=== PATIENT | male | born 1950 | race Caucasian/White ===

== ENCOUNTER 2019-01-05 08:07 | Observation (INO) | payer MEDICARE ==
[2019-01-04 13:27] LABS: BASOPHILS % 0.3 % (0.0-1.0); EOSINOPHILS # (AUTO) 0.1 (0.0-0.4); HEMATOCRIT 40.7 % (38.2-49.6); HEMOGLOBIN 13.6 g/dL (14.0-18.0); LYMPHOCYTES % 19.2 % (18.0-39.1); MEAN CORPUSCULAR HEMOGLOBIN 29.2 pg (28-32); MEAN CORPUSCULAR HGB CONC 33.4 g/dL (31-35); MEAN CORPUSCULAR VOLUME 87.5 fL (81-99); MONOCYTES # (AUTO) 0.8 (0.2-0.8); MONOCYTES % 8.2 % (4.4-11.3); NEUTROPHILS # (AUTO) 7.2 (2.1-6.9); NEUTROPHILS % 70.7 % (38.7-80.0); PLATELET COUNT 296 x10e3/uL (140-360); RED BLOOD COUNT 4.65 x10e6/uL (4.3-5.7); RED CELL DISTRIBUTION WIDTH 14.4 % (11.7-14.4)
[2019-01-04 13:43] LABS: ANION GAP 13.6 mmol/L (8-16); BLOOD UREA NITROGEN 15 mg/dL (7-26); BUN/CREATININE RATIO 18 (6-25); CALCIUM 9.9 mg/dL (8.4-10.2); CARBON DIOXIDE 24 mmol/L (22-29); CHLORIDE 108 mmol/L (98-107); CREATININE, SERUM 0.84 mg/dL (0.72-1.25); EST GLOMERULAR FILTRATION RATE > 60 ML/MIN (60-); GLUCOSE 60 mg/dL (74-118); POTASSIUM 3.6 mmol/L (3.5-5.1); SODIUM 142 mmol/L (136-145)
--- NOTE | 2019-01-04 13:50 | Diagnostic Imaging Report ---
Exam: PA and lateral chest radiograph Clinical history: Preoperative clearance Findings: The cardiac size is in the upper limits of normal. There is elevation of the right hemidiaphragm. There is no evidence of pulmonary consolidation, pleural effusion, or pneumothorax. The regional osseous structures are unremarkable. Impression: 1. Elevated right hemidiaphragm, otherwise, no radiographic evidence of acute cardiorespiratory disease. Signed by: Dr. Ryan Claros MD on 01/04/2019 1:46 PM
[~2019-01-05] VITALS: Ht 188 cm; Wt 128.9 kg
[~2019-01-05 08:07] MED LIST: ADALAT CC60 MG PO; AMIODARONE HCL200 MG PO; ANDROGEL TOP; ASPIRIN325 MG PO; ATORVASTATIN CA20 MG PO; BENAZAPRIL; BENAZEPRIL HCL10 MG PO; BYDUREON2 MG SQ; CARISOPRODOL350 MG PO; CELEBREX200 MG PO; ELIQUIS PO; FENTANYL1 EAC1 TOP; GLYBURIDE-METF1 EAC1 PO; HUMULIN; HYDROCODON-ACE1 EAC9 PO; HYDROCODONE-IB1 EAC1 PO; JANUVIA100 MG PO; LANTUS100 UNITS/ SC; LOSARTAN-HCTZ1 EACH PO; LOVENOX40 MG/0.4 SC; METOPROLOL SUCC25 MG PO; MORPHINE; MORPHINE SULFAT60 M1 PO; NIFEDIAC CC60 MG PO; PERCOCET 7.5-31 EACH PO; ROPIVACAINE 246.25 MG, EPINEPHRINE HCL 1:1000 1ML 0.5 MG, CLONIDINE HCL 0.08 MG, KETORO... INJ ONE; TAMSULOSIN HCL0.4 MG PO; TRICOR145 MG PO; VIAGRA 100 MG; ZANAFLEX4 M1 PO
--- OUTSIDE RECORDS SUMMARY | 2019-01-05 08:12 | XMS REPORT | Clinical Summary ---
Author Author [facility] Address Unknown Phone Unavailable Care Team Providers Care Traveling Nurse Name Role Phone Wander Correa DO PCP Allergies Comments Active Allergy Reactions Severity Noted Date No Known Drug Allergies Other (See 06/19/2015 Comments) Medications End Date Status Medication Sig Dispensed Refills Start Date Active atorvastatin (LIPITOR) 40 Take 40 mg by 0 06/16/201 MG tablet mouth every 6 morning. Active celecoxib (CeleBREX) 200 Take 200 mg 0 06/16/201 MG capsule by mouth 2 6 (two) times a day. Active fenofibrate 145 MG tablet Take 145 mg 0 06/16/201 by mouth 6 every evening. Active blood sugar diagnostic Check QAC and 400 strip 10 strips (ACCU-CHEK QHS 6 SMARTVIEW TEST STRIP) strip test stripsIndications: Diabetes type 2, uncontrolled (HCC) Active ONETOUCH VERIO strip test Test BID 200 strip 10 strips 6 Active JANUVIA 100 mg tablet Take 1 tablet 90 tablet 1 (100 mg 7 total) by mouth daily. Additional information Patient taking differently: 100 mg oral every morning, Reported on 04/06/2018 3:40 PM Active glyburide-metformin Take 2 360 tablet 1 (GLUCOVANCE) 5-500 mg per tablets by 7 tablet mouth 2 (two) times a day with meals. Active BYDUREON 2 mg/0.65 mL pen Inject 2 mg 12 each injector under the 7 skin once a week. Additional information Patient taking differently: 2 mg subcutaneous weekly, Pt usually takes on Fridays, Reported on 04/06/2018 3:49 PM Active blood sugar diagnostic 2 times daily 200 strip 10 strips (ONETOUCH VERIO) 7 strip test strips Active BD INSULIN PEN NEEDLE UF Use 2 times 200 each 10 MINI 31 gauge x 3/16" daily 7 needle Active losartan-hydrochlorothiaz Take 1 tablet 0 alex (HYZAAR) 50-12.5 mg by mouth per tablet every morning. Active omeprazole (PriLOSEC) 40 Take 40 mg by 0 MG capsule mouth 2 (two) times a day before meals. Pt takes 30 minutes before breakfast and dinner Active NIFEdipine XL (PROCARDIA Take 60 mg by 0 XL) 60 MG 24 hr tablet mouth every evening. Active methocarbamol (ROBAXIN) Take 750 mg 0 750 MG tablet by mouth 3 8 (three) times a day as needed. Active HYDROcodone-acetaminophen Take 1 tablet 0 (NORCO) 10-325 mg per by mouth tablet every 6 (six) hours as needed. Active NOVOLOG FLEXPEN U-100 Inject 10 0 INSULIN 100 unit/mL Units under 8 insulin pen the skin 3 (three) times a day with meals. Active insulin GLARGINE (LANTUS) Inject 50 0 100 unit/mL injection Units under (vial) the skin nightly. Active lidocaine (LIDODERM) 5 % Place 1 patch 2 on the skin 8 daily as needed. Active ELIQUIS 5 mg tablet Take 5 mg by 0 mouth 2 (two) 8 times a day. Active gabapentin (NEURONTIN) Take 300 mg 0 100 mg capsule by mouth 8 nightly. Active aspirin (ECOTRIN) 81 MG Take 81 mg by 0 enteric coated tablet mouth 2 (two) times a day. Active ascorbic acid, vitamin C, Take 500 mg 0 (VITAMIN C) 500 MG tablet by mouth every evening. Active multivitamin with Take 1 tablet 0 minerals tablet by mouth every evening. Active coenzyme Q10 200 mg Take 200 mg 0 capsule by mouth every evening. 04/06/2018 Discontinued (Med List Cleanup) benazepril-hydrochlorothi 0 azide (LOTENSIN HCT) 6 20-12.5 mg per tablet 04/06/2018 Discontinued (Med List Cleanup) fentaNYL (DURAGESIC) 0 6 04/06/2018 Discontinued (Med List Cleanup) HYDROcodone-acetaminophen 0 (NORCO 10-325) 10-325 mg 6 per tablet 04/06/2018 Discontinued (Med List Cleanup) NIFEdipine XL (PROCARDIA 0 XL) 60 MG 24 hr tablet 6 04/06/2018 Discontinued (Med List Cleanup) VIAGRA 100 mg tablet 0 6 04/06/2018 Discontinued (Med List Cleanup) baclofen (LIORESAL) 20 MG 0 tablet 7 04/06/2018 Discontinued (Med List Cleanup) lidocaine (XYLOCAINE) 5 % Apply 2-3 3 ointment grams to the 7 affected area(s) 3-4 times daily for pain ( 1gm=1dimesize ) 04/06/2018 Discontinued (Med List Cleanup) doxepin (ZONALON) 5 % Apply 2-3 3 cream pumps to 7 affected area(s) twice daily for nerve pain (1 pump=1 gram ) 04/06/2018 Discontinued (Med List Cleanup) diclofenac sodium 3 % gel Apply 2-3 3 grams to the 7 affected area(s) 3-4 times daily for pain ( 1gm=1dimesize ) 04/06/2018 Discontinued (Med List Cleanup) LANTUS SOLOSTAR 100 Inject 45 15 pen 1 unit/mL injection (pen) Units under 7 the skin nightly. Active Problems Problem Noted Date Chest pain 04/06/2018 Uncontrolled type 2 diabetes mellitus 06/19/2015 Hypertension Hypertension Hyperlipidemia Diabetes mellitus Atrial fibrillation Encounters Care Team Description Date Type Specialty Lu, MD Darío Coyne Jr., Jose Isaias, MD Chest pain, unspecified type (Primary Dx); Shortness of breath; Lightheaded 04/06/2018 Emergency General Internal Medicine - 04/07/2018 after 01/04/2018 Family History Medical History Relation Name Comments Diabetes Father Hypertension Father Hypertension Mother No Known Problems Sister Lupus Sister Relation Name Status Comments Father Mother Sister Sister Social History Date Tobacco Use Types Packs/Day Years Used Never Smoker Smokeless Tobacco: Former Quit: 04/06/1988 User Drinks/Week oz/Week Comments Alcohol Use occasional. 2-3x/wk Yes Financial Resource Strain Answer Date Recorded How hard is it for you to pay for the very basics Not hard at all 04/06/2018 like food, housing, medical care, and heating? Transportation Needs Answer Date Recorded In the past 12 months, has lack of transportation No 04/06/2018 kept you from medical appointments or from getting medications? In the past 12 months, has lack of transportation No 04/06/2018 kept you from meetings, work, or getting things needed for daily living? Sex Assigned at Date Recorded Not on file Industry Job Start Date Occupation Not on file Not on file Not on file Travel End Travel History Travel Start No recent travel history available. Last Filed Vital Signs Reading Time Taken Comments Vital Sign 160/57 04/07/2018 1:45 PM DIRECTORY OPERATOR Blood Pressure 59 04/07/2018 1:45 PM DIRECTORY OPERATOR Pulse 37.1 C (98.7 F) 04/07/2018 10:52 AM DIRECTORY OPERATOR Temperature 20 04/07/2018 10:52 AM DIRECTORY OPERATOR Respiratory Rate 96% 04/07/2018 10:52 AM DIRECTORY OPERATOR Oxygen Saturation - - Inhaled Oxygen Concentration 126 kg (278 lb) 04/06/2018 12:25 PM DIRECTORY OPERATOR Weight 188 cm (6' 2") 04/06/2018 12:25 PM DIRECTORY OPERATOR Height 35.69 04/06/2018 12:25 PM DIRECTORY OPERATOR Body Mass Index Plan of Treatment Health Maintenance Due Date Last Done Comments DIABETIC RETINAL EYE EXAM 1952 DIABETIC FOOT EXAM 1962 COLONOSCOPY SCREENING 2002 SHINGLES VACCINES (#1) 2002 65+ PNEUMOCOCCAL VACCINE 2017 (1 of 2 - PCV13) URINE MICROALBUMIN 10/04/2017 10/04/2016, 11/15/2015 INFLUENZA VACCINE 12/10/2018 02/09/2017 Procedures Comments Procedure Name Priority Date/Time Associated Diagnosis POC GLUCOSE Routine 04/07/2018 11:33 AM DIRECTORY OPERATOR POC GLUCOSE Routine 04/07/2018 5:52 AM DIRECTORY OPERATOR TROPONIN Timed 04/06/2018 9:00 PM DIRECTORY OPERATOR POC GLUCOSE Routine 04/06/2018 8:15 PM DIRECTORY OPERATOR TROPONIN Timed 04/06/2018 5:24 PM DIRECTORY OPERATOR POC GLUCOSE Routine 04/06/2018 5:23 PM DIRECTORY OPERATOR POC GLUCOSE Routine 04/06/2018 3:08 PM DIRECTORY OPERATOR URINALYSIS SCREEN AND STAT 04/06/2018 MICROSCOPY, WITH REFLEX 2:50 PM DIRECTORY OPERATOR TO CULTURE URINE CULTURE STAT 04/06/2018 2:50 PM DIRECTORY OPERATOR ECG 12-LEAD STAT 04/06/2018 1:48 PM DIRECTORY OPERATOR ECG ED PRELIMINARY Routine 04/06/2018 INTERPRETATION 1:03 PM DIRECTORY OPERATOR XR CHEST 2 VW STAT 04/06/2018 12:50 PM DIRECTORY OPERATOR HEMOGLOBIN A1C Routine 04/06/2018 12:32 PM DIRECTORY OPERATOR LIPID PANEL Routine 04/06/2018 12:32 PM DIRECTORY OPERATOR ESTIMATED GFR STAT 04/06/2018 12:30 PM DIRECTORY OPERATOR B NATRIURETIC PEPTIDE STAT 04/06/2018 12:30 PM DIRECTORY OPERATOR PARTIAL THROMBOPLASTIN STAT 04/06/2018 TIME (PTT) 12:30 PM DIRECTORY OPERATOR PROTHROMBIN TIME WITH INR STAT 04/06/2018 12:30 PM DIRECTORY OPERATOR TROPONIN STAT 04/06/2018 12:30 PM DIRECTORY OPERATOR CREATINE KINASE, TOTAL STAT 04/06/2018 (CPK) 12:30 PM DIRECTORY OPERATOR COMPREHENSIVE METABOLIC STAT 04/06/2018 PANEL 12:30 PM DIRECTORY OPERATOR HC COMPLETE BLD COUNT STAT 04/06/2018 W/AUTO DIFF 12:30 PM DIRECTORY OPERATOR ECG 12-LEAD STAT 04/06/2018 12:18 PM DIRECTORY OPERATOR ECG 12-LEAD STAT 04/06/2018 12:15 PM DIRECTORY OPERATOR after 01/04/2018 Results * POC glucose (04/07/2018 11:33 AM DIRECTORY OPERATOR) Only the most recent of 5 results within the time period is included. POC glucose 137 (H) 65 - 99 mg/dL [place] Comment: [facility] Meter ID: [id number] [facility] Kettle Worker: Vinayakrey Hernandez Specimen Performing Organization Address [facility] Phone Number [address] [place] [address] PATHOLOGY AND GENOMIC MEDICINE [address] * Troponin (04/06/2018 9:00 PM DIRECTORY OPERATOR) Only the most recent of 3 results within the time period is included. [facility] Troponin <0.300 0.000 - 0.300 ng/mL [place] Comment: [facility] 0.30 - 1.49 [facility] ng/mlMay indicate increased risk of acute coronary syndrome. >=1.5 ng/ml Consistent with acute myocardial infarction. The diagnostic value of a single normal or non-diagnostic result is questionable.Serial samples at 2-6 hour intervals are required to rule out acute myocardial injury. Specimen Plasma specimen Performing Organization Address [facility] Phone Number [address] [place] [address] PATHOLOGY AND GENOMIC MEDICINE [address] * Urinalysis screen and microscopy, with reflex to culture (04/06/2018 2:50 PM DIRECTORY OPERATOR) [facility] Specimen site Clean catch [facility] Color, UA Yellow [facility] Appearance, UA Clear [facility] Specific 1.026 1.001 - 1.035 [place] gravity, UA [facility] pH, UA 5.0 5.0 - 8.5 [facility] Protein, UA Negative Negative [facility] Glucose, UA Negative Negative [facility] Ketones, UA Negative Negative [facility] Bilirubin, UA Negative Negative [facility] Blood, UA Negative Negative [facility] Nitrite, UA Negative Negative [facility] Urobilinogen, Negative <2.0 [facility] Leukocyte Negative Negative [place] esterase, UA [facility] Epithelial Few /HPF [place] cells, UA [facility] Round Few 0 - 1 /HPF [place] epithelial [facility] cells, UA [facility] WBC, UA 0-5 0 - 1 /HPF [facility] RBC, UA 0-5 0 - 5 /HPF [facility] Bacteria, UA None seen None seen [facility] Yeast, UA None seen [facility] Yeast with None seen [place] pseudohyphae, [facility] Specimen Urine Performing Organization Address City[facility] Phone Number [address] [place] [address] PATHOLOGY AND GENOMIC MEDICINE [address] * Urine culture (04/06/2018 2:50 PM DIRECTORY OPERATOR) Pathologist [facility] Urine culture SEE COMMENTComment: [place] Bacteriuria screen negative. [facility] Specimen Urine Performing Organization Address [facility] [place] Phone Number [address] [place] [address] PATHOLOGY AND GENOMIC MEDICINE [address] * ECG 12 lead (04/06/2018 1:48 PM DIRECTORY OPERATOR) Only the most recent of 3 results within the time period is included. Ventricular 51 [facility] rate Atrial rate 51 [facility] MT interval 192 [facility] QRSD interval 106 [facility] QT interval 472 [facility] QTC interval 435 [facility] P axis 1 54 [facility] QRS axis 1 -49 [facility] T wave axis 46 [facility] EKG impression Sinus bradycardia-Left axis [facility] deviation-Septal infarct (cited on or before 02-JUL-2015)-Abnormal ECG-In automated comparison with ECG of 06-APR-2018 12:19,-Sinus rhythm has replaced Junctional rhythm- Specimen Narrative Performed At Performing Organization Address City[facility] Phone Number [facility] MUSE [address] [place] [address] * ECG ED Preliminary Interpretation - Not an Order (04/06/2018 1:03 PM DIRECTORY OPERATOR) Narrative Performed At Jovani Leigh Jr., MD 04/07/20188:40 AM ECG ED Preliminary Interpretation - Not an Order Performed by: Jovani Leigh Jr., MD Authorized by: Jovani Leigh Jr., MD ECG reviewed by ED Physician in the absence of a green tire inspector: yes (read at [id number]) Previous ECG: Previous ECG:Unavailable Interpretation: Interpretation: normal Rate: ECG rate:51 ECG rate assessment: bradycardic Rhythm: Rhythm: sinus bradycardia Ectopy: Ectopy: none QRS: QRS axis:Normal (106) Conduction: Conduction: normal ST segments: ST segments:Normal T waves: T waves: normal Q waves: Q waves:V1 and V2 * XR Chest 2 Vw (04/06/2018 12:50 PM DIRECTORY OPERATOR) Specimen Narrative Performed At EXAMINATION:XR CHEST 2 VW RADIANT CLINICAL HISTORY:chest pain XR CHEST 2 VWimages are submitted COMPARISON:NONE FINDINGS: The cardiac silhouette is normal in size. The pulmonary vasculature is within normal limits. The lung zones are clear. There is no pleural effusion or pneumothorax.There is elevation of the right lung. Degenerative changes are present within the thoracic and upper lumbar spine. IMPRESSION: 1. There is no acute cardiopulmonary disease. [id number] Procedure Note Interface, Radiology Results Incoming - 04/06/2018 1:05 PM DIRECTORY OPERATOR EXAMINATION: XR CHEST 2 VW CLINICAL HISTORY: chest pain XR CHEST 2 VW images are submitted COMPARISON: NONE FINDINGS: The cardiac silhouette is normal in size. The pulmonary vasculature is within normal limits. The lung zones are clear. There is no pleural effusion or pneumothorax. There is elevation of the right lung. Degenerative changes are present within the thoracic and upper lumbar spine. IMPRESSION: 1. There is no acute cardiopulmonary disease. [id number] Performing Organization Address City/State/Zipcode Phone Number [facility] [address] [place] [address] * Hemoglobin A1c (04/06/2018 12:32 PM DIRECTORY OPERATOR) Hemoglobin A1C 7.3 (H) 4.0 - 6.0 % [place] Comment: RESTORATIONIST [facility] Less than 6% - Goal of therapy for Type II Diabetes Less than 7%-Goal of therapy for Type I Diabetes Less than 8%-Accepta ble control for Type I or Type II Diabetes Greater than 8%-Unacceptabl e control; action indicated. ([id number]) Specimen Blood Performing Organization Address City[facility] Phone Number [facility] [place] [address] [place] [address] PATHOLOGY AND GENOMIC MEDICINE [address] [place] [address] [facility] * Lipid panel (04/06/2018 12:32 PM DIRECTORY OPERATOR) Cholesterol 152 <200 mg/dL [facility] Triglycerides 200 (H) <150 mg/dL [facility] HDL cholesterol 43 >40 mg/dL [facility] LDL cholesterol 96Comment: Result obtained by <100 mg/dL [place] direct LDL measurement [facility] interpretation Comment: [facility] Total Cholesterol [facility] (mg/dL) <200 Desirable 200-239Borderline -high >=240High Triglycerides (mg/dL) <150 Normal 150-199Borderline -high 200-499High >=500Very high HDL Cholesterol (mg/dL) <40Low (male) <40Low (female) LDL Cholesterol (mg/dL) <100 Optimal 100-129Near or above optimal 130-159Borderline -high 160-189High >=190Very high Risk Catergories that modify LDL goals. Risk Catergories LDL goal (mg/dL) CHD and CHD risk equivalent<100 (10-year risk >20%) Multiple (2+) risk factors <130 (10-year risk=<20%) 0-1 risk factors <160 (<10-year risk) Defining levels of lipids in metabolic syndrome Triglycerides >=150 mg/dL HDL Cholesterol Men <40 mg/dL Women <40 mg/dL Non-HDL cholesterol is a second target for therapy in persons with high triglycerides (>=200 mg/dL) Specimen Plasma specimen Performing Organization Address [facility]/Zipcode Phone Number [address] [place] [address] PATHOLOGY AND GENOMIC MEDICINE [address] [place] [address] [facility] * Estimated GFR (04/06/2018 12:30 PM DIRECTORY OPERATOR) [facility] Estimated GFR >=90 mL/min/1.73 m2 [place] Comment: [facility] rpretation G1 >=90 Normal or high G2 60-89Mildly decreased [id number] Mildly to moderately decreased [id number] Moderately to severely decreased G4 15-29Severely decreased G5 <15Kidney failure The eGFR was calculated using the Chronic Kidney Disease Epidemiology Collaboration (CKD-EPI) equation. Interpretation is based on recommendations of the National Kidney Foundation-Kidney Disease Outcomes Quality Initiative (NKF-KDOQI) published in 2014. Specimen Plasma specimen Performing Organization Address [facility] Phone Number [address] * Partial thromboplastin time, activated (04/06/2018 12:30 PM DIRECTORY OPERATOR) [facility] PTT 28.9 23.0 - 36.0 sec [place] Comment: DORIS LEACH PTT therapeutic range for [facility] unfractionated heparin is 61.0-112.0 seconds which corresponds to Anti-Xa 0.3-0.7 U/ml. Specimen Blood Performing Organization Address [facility] [place] Phone Number [address] * Prothrombin time with INR (04/06/2018 12:30 PM DIRECTORY OPERATOR) [facility] Prothrombin 13.8 11.5 - 14.5 sec [facility] INR 1.1 [place] Comment: DORIS MEDINA The International Normalized [facility] Ratio (INR) is a therapeutic monitoring tool for patients who are stable on oral anticoagulant therapy. An INR of 2.0-3.0 is suggested for deep vein thrombosis/pulmonary embolism. Specimen Blood Performing Organization Address [facility] Phone Number [address] [place] [address] PATHOLOGY AND [address] * CBC with platelet and differential (04/06/2018 12:30 PM DIRECTORY OPERATOR) [facility] WBC 8.51 4.50 - 11.00 k/uL [facility] RBC 4.47 4.40 - 6.00 m/uL [facility] HGB 13.0 (L) 14.0 - 18.0 g/dL [facility] HCT 40.4 (L) 41.0 - 51.0 % [facility] MCV 90.4 82.0 - 100.0 fL [facility] MCH 29.1 27.0 - 34.0 pg [facility] MCHC 32.2 31.0 - 37.0 g/dL [facility] RDW - SD 44.6 37.0 - 55.0 fL [facility] MPV 9.7 8.8 - 13.2 fL [facility] Platelet count 248 150 - 400 k/uL [facility] Nucleated RBC 0.00 /100 WBC [facility] Neutrophils 74.7 (H) 39.0 - 69.0 % [facility] Lymphocytes 14.3 (L) 25.0 - 45.0 % [facility] Monocytes 9.0 0.0 - 10.0 % [facility] Eosinophils 1.2 0.0 - 5.0 % [facility] Basophils 0.4 0.0 - 1.0 % [facility] Specimen Blood Performing Organization Address [facility] Phone Number [address] [place] [address] PATHOLOGY AND GENOMIC MEDICINE [address] * B natriuretic peptide (04/06/2018 12:30 PM DIRECTORY OPERATOR) [facility] BNP 44 0 - 100 pg/mL [facility] Specimen Blood Performing Organization Address [facility] Phone Number [address] [place] [address] PATHOLOGY AND GENOMIC MEDICINE [address] * Creatine kinase, total (CPK) (04/06/2018 12:30 PM DIRECTORY OPERATOR) Pathologist [facility] Creatine kinase 237 39 - 308 U/L [facility] Specimen Plasma specimen Performing Organization Address City/State/Zipcode Phone Number [facility] [address] [place] [address] PATHOLOGY AND GENOMIC MEDICINE [facility] [address] * Comprehensive metabolic panel (04/06/2018 12:30 PM DIRECTORY OPERATOR) Pathologist [facility] Sodium 141 135 - 148 mEq/L [facility] Potassium 4.3 3.5 - 5.0 mEq/L [facility] Chloride 103 98 - 112 mEq/L [facility] CO2 27 24 - 31 mEq/L [facility] Anion gap 11@ANIO 7 - 15 mEq/L [facility] BUN 16 8 - 23 mg/dL [facility] Creatinine 0.80 0.70 - 1.20 mg/dL [facility] Glucose 181 (H) 65 - 99 mg/dL [facility] Calcium 9.7 8.8 - 10.2 mg/dL [facility] Protein 7.1 6.3 - 8.3 g/dL [place] Comment: [facility] 4.6-7.0 g/dL 1 week 4.4-7.6 g/dL 7 months-1year 5.1-7.3 g/dL 1-2 years5.6-7 .5 g/dL >3 years6.0-8 .0 g/dL 18-150 6.3-8.3 g/dL Albumin 4.5 3.5 - 5.0 g/dL [facility] A/G ratio 1.7 0.7 - 3.8 [facility] Alkaline 102 40 - 129 U/L [place] phosphatase [facility] AST 20 10 - 50 U/L [facility] ALT 24 5 - 50 U/L [facility] Total bilirubin 0.3 0.0 - 1.2 mg/dL [facility] Specimen Plasma specimen Performing Organization Address City/State/Zipcode [place] [address] [place] [address] PATHOLOGY AND GENOMIC MEDICINE [facility] [address] [place] [address] [facility] after 01/04/2018 Insurance Type Payer Benefit Subscriber ID Effective Phone Address Plan / Dates Group HMO AETNA MEDICARE AETNA xxxxxxxx 2017- MEDICARE Present HMO/PPO [facility] (Home) [place] [address] Advance Directives For more information, please contact: [phone] Patient Grey Roll Worker Explanation Type Date Recorded Advance Directives, 04/06/2018 2:08 PM Living Will and Medical Power of Tip Printer
--- OUTSIDE RECORDS SUMMARY | 2019-01-05 08:13 | XMS REPORT ---
[facility] Address Unknown Phone Unavailable Care Team Providers Care Deck Mechanic Name Role Phone SHELBI HORN Unavailable Unavailable LETTY LEDESMA Unavailable Unavailable LUKASZ CORREA Unavailable Unavailable BINDU COSTA Unavailable Unavailable Payers Payer Name Policy Type Policy Number Effective Date Expiration Date Problems This patient has no known problems. Allergies, Adverse Reactions, Alerts Allergy Name Allergy Type Status Severity Reaction(s) Onset Date Inactive Date Treating Clinician Comments No Known Allergies DA Active U 2018-04-21 00:00:00 Cat/Feline Product Derivatives DA Active AR 2011-10-23 00:00:00 POLLEN DA Active AR 2011-10-22 00:00:00 Medications This patient has no known medications. Results Test Description Test Time Test Comments Text Results Atomic Results Result Comments CHEST 2 VIEWS 2019-01-04 13:45:00 [place] [address] Patient Name: ZEKE BEE MR #: [id number] : 1950 Age/Sex: 68/M Req #: [id number] Adm Physician: Ordered by: SHELBI HORN MD Report #: [id number] Location: OR Room/Bed: Procedure: [id number] DX/CHEST 2 VIEWS Exam Date: 01/04/19 Exam Time: 1310 REPORT STATUS: Signed Exam: PA and lateral chest radiograph Clinical history: P reoperative clearance Findings: The cardiac size is in the upper limits of normal. There is elevation of the right hemidiaphragm. There is no evidence of pulmonary consolidation, pleural effusion, or pneumothorax. The regional osseous structures are unremarkable. Impression: 1. Elevated right hemidiaphragm, otherwise, no radiographic evidence of acute cardiorespiratory disease. Signed by: Dr. Ryan Claros MD on 01/04/2019 1:46 PM Dictated By: LAVELLE CLAROS MD 1346 Transcribed By: SHAWNA on 01/04/19 1346 COPY TO: SHELBI HORN MD GLUBED 2018-09-07 14:44:00 GLUBED (test code=GLUBED) 127 mg/dL 74-106 Performed by certified blending plant operator at [facility] PROTHROMBIN [id number] 07:25:00* Test Item Value Reference Range Comments PROTHROMBIN TIME PATIENT (test code=PTP) 14.3 seconds 9.0-14.0 INTERNATIONAL NORMAL RATIO (test code=INR) 1.2 0.8-1.2 The therapeutic range for oral anticoagulant therapy formost indications is an international normalized ratio (INR)of between 2.0 and 3.0. The recommended therapeutic INRrange for various clinical situations is listed below: Clinical Situation INR range Pulmonary e mbolism treatment (2.0-3.0)Venous thrombosis treatmentVenous thrombosis prophylaxis (high risk surgery)Prevention of systemic embolism from: Acute myocardial infarction Valvular heart disease Atrial fibrillation Mechanical prosthetic heart valves (2.5-3.5) IS PATIENT ON ANTICOAGULANTS? YLIST ANTICOAGULANTS ELIQUISTHROMBOPLASTIN TIME [id number] 07:25:00* Test Item Value Reference Range Comments THROMBOPLASTIN TIME PARTIAL (test code=PTT) 33.0 seconds 25.0-36.5 IS PATIENT ON ANTICOAGULANTS? YLIST ANTICOAGULANTS ELIQUISPOCT-GLUCOSE METER 2018-01-06 07:54:00* Test Item Value Reference Range Comments POC-GLUCOSE METER (BEAKER) (test plwu=0571) 226 mg/dL 70-110 TESTED AT [facility] [address] [facility] [address] [id number] 02:07:00* Test Item Value Reference Range Comments BLOOD UREA NITROGEN (BEAKER) (test rxmw=913) 14 mg/dL 7-21 [id number] 02:07:00* Test Item Value Reference Range Comments SODIUM (BEAKER) (test bcib=150) 141 meq/L 136-145 POTASSIUM (BEAKER) (test hzjl=872) 3.8 meq/L 3.5-5.1 CHLORIDE (BEAKER) (test xkmp=791) 109 meq/L 98-107 CO2 (BEAKER) (test xakc=688) 24 meq/L 22-29 [id number] 02:07:00* Test Item Value Reference Range Comments CREATININE (BEAKER) (test xirs=334) 0.83 mg/dL 0.57-1.25 EGFR (BEAKER) (test bomr=1911) 93 mL/min/1.73 sq m ESTIMATED GFR IS NOT ACCURATE CREATININE CLEARANCE IN PREDICTING GLOMERULAR FILTRATION RATE. ESTIMATED GFR IS NOT APPLICABLE FOR DIALYSIS PATIENTS. [id number] 02:06:00* Test Item Value Reference Range Comments PARTIAL THROMBOPLASTIN TIME (BEAKER) (test rnjt=398) 26.4 seconds 22.5-36.0 6 hours after starting heparin infusion and as indicated per sliding scaleCBC (HEMOGRAM ONLY)2018-01-06 01:52:00* Test Item Value Reference Range Comments WHITE BLOOD CELL COUNT (BEAKER) (test cqlx=636) 12.1 K/ L 3.5-10.5 RED BLOOD CELL COUNT (BEAKER) (test ejhy=763) 3.95 M/ L 4.63-6.08 HEMOGLOBIN (BEAKER) (test tcuo=932) 12.0 GM/DL 13.7-17.5 HEMATOCRIT (BEAKER) (test pzjl=117) 36.8 % 40.1-51.0 MEAN CORPUSCULAR VOLUME (BEAKER) (test glta=752) 93.2 fL 79.0-92.2 MEAN CORPUSCULAR HEMOGLOBIN (BEAKER) (test jful=418) 30.4 pg 25.7-32.2 MEAN CORPUSCULAR HEMOGLOBIN CONC (BEAKER) (test trnn=007) 32.6 GM/DL 32.3-36.5 RED CELL DISTRIBUTION WIDTH (BEAKER) (test bddn=532) 13.0 % 11.6-14.4 PLATELET COUNT (BEAKER) (test twtm=559) 257 K/CU MM 150-450 MEAN PLATELET VOLUME (BEAKER) (test emnm=405) 10.0 fL 9.4-12.4 NUCLEATED RED BLOOD CELLS (BEAKER) (test bvgb=684) 0 /100 WBC 0-0 BASIC METABOLIC [id number] 19:48:00* Test Item Value Reference Range Comments SODIUM (BEAKER) (test rbvo=612) 142 meq/L 136-145 POTASSIUM (BEAKER) (test tkrs=264) 3.8 meq/L 3.5-5.1 CHLORIDE (BEAKER) (test arbg=997) 108 meq/L 98-107 CO2 (BEAKER) (test pure=276) 28 meq/L 22-29 BLOOD UREA NITROGEN (BEAKER) (test eyml=108) 11 mg/dL 7-21 CREATININE (BEAKER) (test tubb=868) 0.80 mg/dL 0.57-1.25 GLUCOSE RANDOM (BEAKER) (test nezi=133) 122 mg/dL 70-105 CALCIUM (BEAKER) (test mswt=648) 8.6 mg/dL 8.4-10.2 EGFR (BEAKER) (test uyem=1119) 97 mL/min/1.73 sq m ESTIMATED GFR IS NOT ACCURATE CREATININE CLEARANCE IN PREDICTING GLOMERULAR FILTRATION RATE. ESTIMATED GFR IS NOT APPLICABLE FOR DIALYSIS PATIENTS. [id number] 19:42:00* Test Item Value Reference Range Comments PARTIAL THROMBOPLASTIN TIME (BEAKER) (test strc=727) 73.2 seconds 22.5-36.0 Prior to initiating heparinCBC (HEMOGRAM ONLY)2018-01-05 19:29:00* Test Item Value Reference Range Comments WHITE BLOOD CELL COUNT (BEAKER) (test eqsf=571) 10.4 K/ L 3.5-10.5 RED BLOOD CELL COUNT (BEAKER) (test mesy=281) 4.13 M/ L 4.63-6.08 HEMOGLOBIN (BEAKER) (test yfgl=901) 12.4 GM/DL 13.7-17.5 HEMATOCRIT (BEAKER) (test ohab=519) 38.4 % 40.1-51.0 MEAN CORPUSCULAR VOLUME (BEAKER) (test evin=581) 93.0 fL 79.0-92.2 MEAN CORPUSCULAR HEMOGLOBIN (BEAKER) (test nzvx=802) 30.0 pg 25.7-32.2 MEAN CORPUSCULAR HEMOGLOBIN CONC (BEAKER) (test duwg=171) 32.3 GM/DL 32.3-36.5 RED CELL DISTRIBUTION WIDTH (BEAKER) (test vfkc=040) 12.8 % 11.6-14.4 PLATELET COUNT (BEAKER) (test cxxk=350) 260 K/CU MM 150-450 MEAN PLATELET VOLUME (BEAKER) (test wtem=233) 9.8 fL 9.4-12.4 NUCLEATED RED BLOOD CELLS (BEAKER) (test bjes=941) 0 /100 WBC 0-0 [id number] 19:02:00* Test Item Value Reference Range Comments ACTIVATED CLOTTING TIME (BEAKER) (test xxkb=273) 142 sec TESTED AT [place] [id number] 18:04:00* Test Item Value Reference Range Comments ACTIVATED CLOTTING TIME (BEAKER) (test imoy=213) 224 sec TESTED AT [place] [id number] [id number] 18:04:00* Test Item Value Reference Range Comments ACTIVATED CLOTTING TIME (BEAKER) (test acpf=248) 235 sec TESTED AT [place] [address] [id number] 18:04:00* Test Item Value Reference Range Comments ACTIVATED CLOTTING TIME (BEAKER) (test jeva=481) 230 sec TESTED AT [facility] [address] [facility] [address] [id number] 18:04:00* Test Item Value Reference Range Comments ACTIVATED CLOTTING TIME (BEAKER) (test qxbo=767) 197 sec TESTED AT [facility] [address] [facility] [address] BASIC METABOLIC [id number] 11:39:00* Test Item Value Reference Range Comments SODIUM (BEAKER) (test ybwp=072) 140 meq/L 136-145 POTASSIUM (BEAKER) (test txse=300) 3.6 meq/L 3.5-5.1 CHLORIDE (BEAKER) (test qpft=031) 106 meq/L 98-107 CO2 (BEAKER) (test vdzq=817) 26 meq/L 22-29 BLOOD UREA NITROGEN (BEAKER) (test ocqb=444) 14 mg/dL 7-21 CREATININE (BEAKER) (test hbba=244) 0.79 mg/dL 0.57-1.25 GLUCOSE RANDOM (BEAKER) (test srqo=791) 133 mg/dL 70-105 CALCIUM (BEAKER) (test sbzq=661) 9.4 mg/dL 8.4-10.2 EGFR (BEAKER) (test upml=7405) 98 mL/min/1.73 sq m ESTIMATED GFR IS NOT ACCURATE CREATININE CLEARANCE IN PREDICTING GLOMERULAR FILTRATION RATE. ESTIMATED GFR IS NOT APPLICABLE FOR DIALYSIS PATIENTS. CBC W/PLT COUNT & AUTO [id number] 11:27:00* Test Item Value Reference Range Comments WHITE BLOOD CELL COUNT (BEAKER) (test ofzw=820) 10.8 K/ L 3.5-10.5 RED BLOOD CELL COUNT (BEAKER) (test lhgp=271) 4.58 M/ L 4.63-6.08 HEMOGLOBIN (BEAKER) (test txmf=766) 13.7 GM/DL 13.7-17.5 HEMATOCRIT (BEAKER) (test xfkv=982) 41.6 % 40.1-51.0 MEAN CORPUSCULAR VOLUME (BEAKER) (test habe=346) 90.8 fL 79.0-92.2 MEAN CORPUSCULAR HEMOGLOBIN (BEAKER) (test ahyn=969) 29.9 pg 25.7-32.2 MEAN CORPUSCULAR HEMOGLOBIN CONC (BEAKER) (test juii=711) 32.9 GM/DL 32.3-36.5 RED CELL DISTRIBUTION WIDTH (BEAKER) (test fihn=784) 12.9 % 11.6-14.4 PLATELET COUNT (BEAKER) (test sklc=812) 285 K/CU MM 150-450 MEAN PLATELET VOLUME (BEAKER) (test fwcl=777) 9.5 fL 9.4-12.4 NUCLEATED RED BLOOD CELLS (BEAKER) (test hnjl=476) 0 /100 WBC 0-0 NEUTROPHILS RELATIVE PERCENT (BEAKER) (test lcyo=537) 77 % LYMPHOCYTES RELATIVE PERCENT (BEAKER) (test cifh=459) 14 % MONOCYTES RELATIVE PERCENT (BEAKER) (test vjth=906) 8 % EOSINOPHILS RELATIVE PERCENT (BEAKER) (test kthl=319) 1 % BASOPHILS RELATIVE PERCENT (BEAKER) (test gwzu=098) 0 % NEUTROPHILS ABSOLUTE COUNT (BEAKER) (test mwdq=880) 8.32 K/ L 1.78-5.38 LYMPHOCYTES ABSOLUTE COUNT (BEAKER) (test ipuh=297) 1.48 K/ L 1.32-3.57 MONOCYTES ABSOLUTE COUNT (BEAKER) (test tkir=885) 0.86 K/ L 0.30-0.82 EOSINOPHILS ABSOLUTE COUNT (BEAKER) (test rmno=539) 0.05 K/ L 0.04-0.54 BASOPHILS ABSOLUTE COUNT (BEAKER) (test wwco=725) 0.03 K/ L 0.01-0.08 IMMATURE GRANULOCYTES-RELATIVE PERCENT (BEAKER) (test lygk=1550) 1 % 0-1 POCT-GLUCOSE [id number] 12:14:00* Test Item Value Reference Range Comments POC-GLUCOSE METER (BEAKER) (test mous=7142) 168 mg/dL 70-110 TESTED AT [place] [id number] [facility] [address] [id number] 11:11:00* Test Item Value Reference Range Comments MAGNESIUM (BEAKER) (test glfu=406) 1.9 mg/dL 1.6-2.6 RAD, CHEST, 1 VIEW, NON [id number] 09:12:00Reason for exam:->shortness of breathShould this be performed at the bedside?->YesFINAL REPORT Chest 2 views AP 09/15/2017 9:12 AM CLINICAL HISTORY: shortness of breath COMPARISON: 09/14/2017 FINDINGS: The lungs are well aerated. Cardiomediastinal contours are within normal limits. The central pulmonary vasculature is not engorged. IMPRESSION: Unremarkable frontal chest radiograph. Signed: Sreedhar Magaña Verified Date/Time: 09/15/2017 09:12:43 Reading Location: [facility] Radiology Reading Room -GLUCOSE [id number] 08:31:00* Test Item Value Reference Range Comments POC-GLUCOSE METER (BEAKER) (test bhpd=5784) 72 mg/dL 70-110 TESTED AT [facility] [address] [facility] [address] BASIC METABOLIC [id number] 06:04:00* Test Item Value Reference Range Comments SODIUM (BEAKER) (test kpei=661) 143 meq/L 136-145 POTASSIUM (BEAKER) (test gzyw=321) 3.7 meq/L 3.5-5.1 CHLORIDE (BEAKER) (test mtpp=394) 109 meq/L 98-107 CO2 (BEAKER) (test lkuu=407) 27 meq/L 22-29 BLOOD UREA NITROGEN (BEAKER) (test swwd=991) 13 mg/dL 7-21 CREATININE (BEAKER) (test ktgw=304) 0.74 mg/dL 0.57-1.25 GLUCOSE RANDOM (BEAKER) (test fmdb=336) 100 mg/dL 70-105 CALCIUM (BEAKER) (test lijh=281) 9.1 mg/dL 8.4-10.2 EGFR (BEAKER) (test bfhg=8157) 106 mL/min/1.73 sq m ESTIMATED GFR IS NOT ACCURATE CREATININE CLEARANCE IN PREDICTING GLOMERULAR FILTRATION RATE. ESTIMATED GFR IS NOT APPLICABLE FOR DIALYSIS PATIENTS. CBC W/PLT COUNT & AUTO [id number] 05:48:00* Test Item Value Reference Range Comments WHITE BLOOD CELL COUNT (BEAKER) (test jmsj=227) 7.4 K/ L 3.5-10.5 RED BLOOD CELL COUNT (BEAKER) (test edce=038) 4.65 M/ L 4.63-6.08 HEMOGLOBIN (BEAKER) (test hvkh=661) 13.7 GM/DL 13.7-17.5 HEMATOCRIT (BEAKER) (test lmqh=485) 42.6 % 40.1-51.0 MEAN CORPUSCULAR VOLUME (BEAKER) (test hbyj=001) 91.6 fL 79.0-92.2 MEAN CORPUSCULAR HEMOGLOBIN (BEAKER) (test ahey=736) 29.5 pg 25.7-32.2 MEAN CORPUSCULAR HEMOGLOBIN CONC (BEAKER) (test zmoc=181) 32.2 GM/DL 32.3-36.5 RED CELL DISTRIBUTION WIDTH (BEAKER) (test vgsu=246) 12.9 % 11.6-14.4 PLATELET COUNT (BEAKER) (test uefz=120) 237 K/CU MM 150-450 MEAN PLATELET VOLUME (BEAKER) (test sonk=013) 10.0 fL 9.4-12.4 NUCLEATED RED BLOOD CELLS (BEAKER) (test inmq=743) 0 /100 WBC 0-0 NEUTROPHILS RELATIVE PERCENT (BEAKER) (test djqg=273) 63 % LYMPHOCYTES RELATIVE PERCENT (BEAKER) (test lnbq=117) 26 % MONOCYTES RELATIVE PERCENT (BEAKER) (test itvn=036) 10 % EOSINOPHILS RELATIVE PERCENT (BEAKER) (test nfmu=255) 1 % BASOPHILS RELATIVE PERCENT (BEAKER) (test ycfk=011) 0 % NEUTROPHILS ABSOLUTE COUNT (BEAKER) (test eckp=139) 4.61 K/ L 1.78-5.38 LYMPHOCYTES ABSOLUTE COUNT (BEAKER) (test pkpf=737) 1.90 K/ L 1.32-3.57 MONOCYTES ABSOLUTE COUNT (BEAKER) (test xjte=227) 0.71 K/ L 0.30-0.82 EOSINOPHILS ABSOLUTE COUNT (BEAKER) (test lmaa=604) 0.10 K/ L 0.04-0.54 BASOPHILS ABSOLUTE COUNT (BEAKER) (test hooh=701) 0.02 K/ L 0.01-0.08 IMMATURE GRANULOCYTES-RELATIVE PERCENT (BEAKER) (test zhey=7445) 0 % 0-1 B-TYPE NATRIURETIC FACTOR (BNP)2017-09-14 22:34:00* Test Item Value Reference Range Comments B-TYPE NATRIURETIC PEPTIDE (BEAKER) (test ispw=560) 124 pg/mL 0-100 TROPONIN [id number] 22:33:00* Test Item Value Reference Range Comments TROPONIN I (BEAKER) (test hzdr=198) 0.01 ng/mL 0.00-0.03 Troponin I (TnI) levels must be interpreted in the context of the presenting sym ptoms and the clinical findings. Elevated TnI levels indicate myocardial damage, but are not specific for ischemic heart disease. Elevated TnI levels are seen in patients with other cardiac conditions (including myocarditis and congestive h eart failure), and slight TnI elevations occur in patients with other conditions , including sepsis, renal failure, acidosis, acute neurological disease, and per sistent tachyarrhythmia.RAD, CHEST, 1 VIEW, NON [id number] 22:31:00Reason for exam:->Chest PainFINAL REPORT EXAMINATION: AP PORTABLE CHEST RADIOGRAPH CLINICAL INDICATION: Chest pain IMPRESSION: No comparison studies are available. The right hemidiaphragm is elevated. Subtle consolidation at the right lung base is favored to reflect associated atelectasis or scarring. No definite evidence of a discrete pneumonia, pulmonary edema, large pleural effusion or pneumothorax. The cardiomediastinal silhouette is magnified by the AP portable technique. However mild cardiac enlargement should also be considered. Orthopedic anchors are noted in the left humeral head. No definite evidence of an acute osseous abnormality. Signed: Salbador Le [facility]ep[facility] Verified Date/Time: 09/14/2017 22:31:50 Reading Location: [address] Reading Room [id number] 22:25:00* Test Item Value Reference Range Comments MAGNESIUM (BEAKER) (test bowg=226) 1.7 mg/dL 1.6-2.6 BASIC METABOLIC [id number] 22:25:00* Test Item Value Reference Range Comments SODIUM (BEAKER) (test vjwr=406) 143 meq/L 136-145 POTASSIUM (BEAKER) (test fgyz=671) 3.7 meq/L 3.5-5.1 CHLORIDE (BEAKER) (test kpcx=660) 108 meq/L 98-107 CO2 (BEAKER) (test palz=506) 25 meq/L 22-29 BLOOD UREA NITROGEN (BEAKER) (test abdq=627) 16 mg/dL 7-21 CREATININE (BEAKER) (test xwmz=178) 0.84 mg/dL 0.57-1.25 GLUCOSE RANDOM (BEAKER) (test buum=685) 156 mg/dL 70-105 CALCIUM (BEAKER) (test wyyd=114) 9.1 mg/dL 8.4-10.2 EGFR (BEAKER) (test ojag=1942) 92 mL/min/1.73 sq m ESTIMATED GFR IS NOT ACCURATE CREATININE CLEARANCE IN PREDICTING GLOMERULAR FILTRATION RATE. ESTIMATED GFR IS NOT APPLICABLE FOR DIALYSIS PATIENTS. PROTHROMBIN [id number] 22:19:00* Test Item Value Reference Range Comments PROTIME (BEAKER) (test yxgj=141) 16.8 seconds 11.7-14.7 INR (BEAKER) (test yitu=282) 1.4 <=5.9 RECOMMENDED COUMADIN/WARFARIN INR THERAPY RANGESSTANDARD DOSE: 2.0 - 3.0 Inclu dk: PROPHYLAXIS for venous thrombosis, systemic embolization; TREATMENT for francisco ous thrombosis and/or pulmonary embolus.HIGH RISK: Target INR is 2.5-3.5 for pat ients with mechanical heart valves.CBC W/PLT COUNT & AUTO [id number] 22:10:00* Test Item Value Reference Range Comments WHITE BLOOD CELL COUNT (BEAKER) (test ivrf=683) 8.1 K/ L 3.5-10.5 RED BLOOD CELL COUNT (BEAKER) (test alel=917) 4.52 M/ L 4.63-6.08 HEMOGLOBIN (BEAKER) (test tiyu=244) 13.7 GM/DL 13.7-17.5 HEMATOCRIT (BEAKER) (test mtrp=704) 40.7 % 40.1-51.0 MEAN CORPUSCULAR VOLUME (BEAKER) (test ftdu=386) 90.0 fL 79.0-92.2 MEAN CORPUSCULAR HEMOGLOBIN (BEAKER) (test cwrz=847) 30.3 pg 25.7-32.2 MEAN CORPUSCULAR HEMOGLOBIN CONC (BEAKER) (test paqx=248) 33.7 GM/DL 32.3-36.5 RED CELL DISTRIBUTION WIDTH (BEAKER) (test dkku=113) 12.7 % 11.6-14.4 PLATELET COUNT (BEAKER) (test agdh=493) 237 K/CU MM 150-450 MEAN PLATELET VOLUME (BEAKER) (test exfz=890) 9.8 fL 9.4-12.4 NUCLEATED RED BLOOD CELLS (BEAKER) (test jnjo=453) 0 /100 WBC 0-0 NEUTROPHILS RELATIVE PERCENT (BEAKER) (test ackv=315) 66 % LYMPHOCYTES RELATIVE PERCENT (BEAKER) (test sjim=241) 22 % MONOCYTES RELATIVE PERCENT (BEAKER) (test elrv=670) 9 % EOSINOPHILS RELATIVE PERCENT (BEAKER) (test caiz=865) 1 % BASOPHILS RELATIVE PERCENT (BEAKER) (test wdyd=247) 0 % NEUTROPHILS ABSOLUTE COUNT (BEAKER) (test qbmw=594) 5.41 K/ L 1.78-5.38 LYMPHOCYTES ABSOLUTE COUNT (BEAKER) (test loaa=299) 1.79 K/ L 1.32-3.57 MONOCYTES ABSOLUTE COUNT (BEAKER) (test ltwx=928) 0.74 K/ L 0.30-0.82 EOSINOPHILS ABSOLUTE COUNT (BEAKER) (test zlxx=344) 0.11 K/ L 0.04-0.54 BASOPHILS ABSOLUTE COUNT (BEAKER) (test mfxy=563) 0.03 K/ L 0.01-0.08 IMMATURE GRANULOCYTES-RELATIVE PERCENT (BEAKER) (test wxzp=3752) 1 % 0-1 BASIC METABOLIC [id number] 09:27:00* Test Item Value Reference Range Comments SODIUM (BEAKER) (test tgbk=718) 145 meq/L 136-145 POTASSIUM (BEAKER) (test chms=089) 4.6 meq/L 3.5-5.1 CHLORIDE (BEAKER) (test dyvv=520) 106 meq/L 98-107 CO2 (BEAKER) (test gpgy=962) 26 meq/L 22-29 BLOOD UREA NITROGEN (BEAKER) (test yklk=775) 17 mg/dL 7-21 CREATININE (BEAKER) (test azzt=067) 0.92 mg/dL 0.57-1.25 GLUCOSE RANDOM (BEAKER) (test wdyb=559) 203 mg/dL 70-105 CALCIUM (BEAKER) (test golr=764) 9.6 mg/dL 8.4-10.2 EGFR (BEAKER) (test pzih=8739) 83 mL/min/1.73 sq m ESTIMATED GFR IS NOT ACCURATE CREATININE CLEARANCE IN PREDICTING GLOMERULAR FILTRATION RATE. ESTIMATED GFR IS NOT APPLICABLE FOR DIALYSIS PATIENTS. [id number] 09:16:00* Test Item Value Reference Range Comments PARTIAL THROMBOPLASTIN TIME (BEAKER) (test jvpc=714) 26.4 seconds 22.5-36.0 PROTHROMBIN TIME/[id number] 09:15:00* Test Item Value Reference Range Comments PROTIME (BEAKER) (test shxb=632) 15.2 seconds 11.7-14.7 INR (BEAKER) (test klwc=010) 1.2 <=5.9 RECOMMENDED COUMADIN/WARFARIN INR THERAPY RANGESSTANDARD DOSE: 2.0 - 3.0 Inclu dk: PROPHYLAXIS for venous thrombosis, systemic embolization; TREATMENT for francisco ous thrombosis and/or pulmonary embolus.HIGH RISK: Target INR is 2.5-3.5 for pat ients with mechanical heart valves.CBC W/PLT COUNT & AUTO [id number] 09:03:00* Test Item Value Reference Range Comments WHITE BLOOD CELL COUNT (BEAKER) (test efaq=668) 8.8 K/ L 3.5-10.5 RED BLOOD CELL COUNT (BEAKER) (test klmy=408) 4.76 M/ L 4.63-6.08 HEMOGLOBIN (BEAKER) (test gybw=603) 14.7 GM/DL 13.7-17.5 HEMATOCRIT (BEAKER) (test cbfz=077) 44.8 % 40.1-51.0 MEAN CORPUSCULAR VOLUME (BEAKER) (test llbz=095) 94.1 fL 79.0-92.2 MEAN CORPUSCULAR HEMOGLOBIN (BEAKER) (test ctfi=759) 30.9 pg 25.7-32.2 MEAN CORPUSCULAR HEMOGLOBIN CONC (BEAKER) (test orph=281) 32.8 GM/DL 32.3-36.5 RED CELL DISTRIBUTION WIDTH (BEAKER) (test mrqx=277) 13.5 % 11.6-14.4 PLATELET COUNT (BEAKER) (test hxml=444) 292 K/CU MM 150-450 MEAN PLATELET VOLUME (BEAKER) (test ztlt=852) 9.8 fL 9.4-12.4 NUCLEATED RED BLOOD CELLS (BEAKER) (test xyyz=621) 0 /100 WBC 0-0 NEUTROPHILS RELATIVE PERCENT (BEAKER) (test sxnf=317) 74 % LYMPHOCYTES RELATIVE PERCENT (BEAKER) (test gfei=699) 17 % MONOCYTES RELATIVE PERCENT (BEAKER) (test vwhu=021) 8 % EOSINOPHILS RELATIVE PERCENT (BEAKER) (test mqte=487) 1 % BASOPHILS RELATIVE PERCENT (BEAKER) (test gxdo=197) 0 % NEUTROPHILS ABSOLUTE COUNT (BEAKER) (test untg=555) 6.45 K/ L 1.78-5.38 LYMPHOCYTES ABSOLUTE COUNT (BEAKER) (test cibe=192) 1.51 K/ L 1.32-3.57 MONOCYTES ABSOLUTE COUNT (BEAKER) (test zeav=200) 0.67 K/ L 0.30-0.82 EOSINOPHILS ABSOLUTE COUNT (BEAKER) (test ghnd=513) 0.09 K/ L 0.04-0.54 BASOPHILS ABSOLUTE COUNT (BEAKER) (test gezw=565) 0.03 K/ L 0.01-0.08 IMMATURE GRANULOCYTES-RELATIVE PERCENT (BEAKER) (test jnei=6788) 0 % 0-1 POCT-GLUCOSE [id number] 08:43:00* Test Item Value Reference Range Comments POC-GLUCOSE METER (BEAKER) (test oede=1676) 158 mg/dL 70-110 TESTED AT [facility] [address] [facility] [address] [id number] 04:26:00* Test Item Value Reference Range Comments BLOOD UREA NITROGEN (BEAKER) (test wgfq=752) 14 mg/dL 7-21 [id number] 04:26:00* Test Item Value Reference Range Comments SODIUM (BEAKER) (test dwbg=741) 142 meq/L 136-145 POTASSIUM (BEAKER) (test fmtm=599) 3.4 meq/L 3.5-5.1 CHLORIDE (BEAKER) (test pqqq=333) 109 meq/L 98-107 CO2 (BEAKER) (test pnod=875) 24 meq/L 22-29 [id number] 04:26:00* Test Item Value Reference Range Comments CREATININE (BEAKER) (test dvwq=097) 0.93 mg/dL 0.57-1.25 EGFR (BEAKER) (test ihlg=8234) 82 mL/min/1.73 sq m ESTIMATED GFR IS NOT ACCURATE CREATININE CLEARANCE IN PREDICTING GLOMERULAR FILTRATION RATE. ESTIMATED GFR IS NOT APPLICABLE FOR DIALYSIS PATIENTS. CBC (HEMOGRAM ONLY)2017-04-26 04:08:00* Test Item Value Reference Range Comments WHITE BLOOD CELL COUNT (BEAKER) (test fggh=025) 9.3 K/ L 3.5-10.5 RED BLOOD CELL COUNT (BEAKER) (test jjmp=442) 4.05 M/ L 4.63-6.08 HEMOGLOBIN (BEAKER) (test cycz=525) 12.5 GM/DL 13.7-17.5 HEMATOCRIT (BEAKER) (test wxnn=952) 37.7 % 40.1-51.0 MEAN CORPUSCULAR VOLUME (BEAKER) (test mkdp=252) 93.1 fL 79.0-92.2 MEAN CORPUSCULAR HEMOGLOBIN (BEAKER) (test qgyt=323) 30.9 pg 25.7-32.2 MEAN CORPUSCULAR HEMOGLOBIN CONC (BEAKER) (test rmub=359) 33.2 GM/DL 32.3-36.5 RED CELL DISTRIBUTION WIDTH (BEAKER) (test gyiv=948) 13.6 % 11.6-14.4 PLATELET COUNT (BEAKER) (test wljn=250) 189 K/CU MM 150-450 MEAN PLATELET VOLUME (BEAKER) (test dnnl=223) 9.9 fL 9.4-12.4 NUCLEATED RED BLOOD CELLS (BEAKER) (test xban=861) 0 /100 WBC 0-0 [id number] 04:03:00* Test Item Value Reference Range Comments PARTIAL THROMBOPLASTIN TIME (BEAKER) (test ucud=801) 30.1 seconds 22.5-36.0 POCT-GLUCOSE [id number] 22:10:00* Test Item Value Reference Range Comments POC-GLUCOSE METER (BEAKER) (test wblb=1944) 158 mg/dL 70-110 TESTED AT [facility] [address] [facility] [address] POCT-GLUCOSE [id number] 18:28:00* Test Item Value Reference Range Comments POC-GLUCOSE METER (BEAKER) (test kykj=5186) 129 mg/dL 70-110 TESTED AT [facility] [address] [facility] [address] POCT-GLUCOSE [id number] 15:54:00* Test Item Value Reference Range Comments POC-GLUCOSE METER (BEAKER) (test jpew=7011) 160 mg/dL 70-110 TESTED AT [place] [address] [id number] 14:07:00* Test Item Value Reference Range Comments ACTIVATED CLOTTING TIME (BEAKER) (test aqef=263) 136 sec TESTED AT [place] [address] [id number] 13:26:00* Test Item Value Reference Range Comments ACTIVATED CLOTTING TIME (BEAKER) (test nyqt=576) 153 sec TESTED AT [place] [address] [id number] 12:21:00* Test Item Value Reference Range Comments ACTIVATED CLOTTING TIME (BEAKER) (test fehk=176) 241 sec TESTED AT [place] [address] [id number] 11:48:00* Test Item Value Reference Range Comments ACTIVATED CLOTTING TIME (BEAKER) (test cdur=822) 246 sec TESTED AT [place] [address] [id number] 11:28:00* Test Item Value Reference Range Comments ACTIVATED CLOTTING TIME (BEAKER) (test tgaa=972) 252 sec TESTED AT [place] [address] [id number] 11:28:00* Test Item Value Reference Range Comments ACTIVATED CLOTTING TIME (BEAKER) (test jnyx=111) 235 sec TESTED AT [place] [address] [id number] 11:28:00* Test Item Value Reference Range Comments ACTIVATED CLOTTING TIME (BEAKER) (test lsfy=156) 235 sec TESTED AT [place] [address] [id number] 11:28:00* Test Item Value Reference Range Comments ACTIVATED CLOTTING TIME (BEAKER) (test hpti=520) 230 sec TESTED AT [place] [address] [id number] 11:28:00* Test Item Value Reference Range Comments ACTIVATED CLOTTING TIME (BEAKER) (test kzht=352) 213 sec TESTED AT [place] [address] [id number] 06:28:00* Test Item Value Reference Range Comments MAGNESIUM (BEAKER) (test eczt=173) 1.9 mg/dL 1.6-2.6 COMPREHENSIVE METABOLIC [id number] 06:28:00* Test Item Value Reference Range Comments TOTAL PROTEIN (BEAKER) (test zotx=170) 7.2 gm/dL 6.0-8.3 ALBUMIN (BEAKER) (test tjch=5643) 4.2 g/dL 3.5-5.0 ALKALINE PHOSPHATASE (BEAKER) (test lzfk=344) 85 U/L 40-150 BILIRUBIN TOTAL (BEAKER) (test gstn=222) < mg/dL 0.2-1.2 SODIUM (BEAKER) (test bdnz=223) 143 meq/L 136-145 POTASSIUM (BEAKER) (test vlbx=516) 4.0 meq/L 3.5-5.1 CHLORIDE (BEAKER) (test etkj=549) 106 meq/L 98-107 CO2 (BEAKER) (test ryhh=490) 27 meq/L 22-29 BLOOD UREA NITROGEN (BEAKER) (test gxdo=460) 17 mg/dL 7-21 CREATININE (BEAKER) (test wgju=954) 0.98 mg/dL 0.57-1.25 GLUCOSE RANDOM (BEAKER) (test ooni=013) 170 mg/dL 70-105 CALCIUM (BEAKER) (test kcpv=269) 9.6 mg/dL 8.4-10.2 AST (SGOT) (BEAKER) (test lgna=878) 16 U/L 5-34 ALT (SGPT) (BEAKER) (test rujz=984) 20 U/L 6-55 EGFR (BEAKER) (test spnq=5684) 77 mL/min/1.73 sq m ESTIMATED GFR IS NOT ACCURATE CREATININE CLEARANCE IN PREDICTING GLOMERULAR FILTRATION RATE. ESTIMATED GFR IS NOT APPLICABLE FOR DIALYSIS PATIENTS. [id number] 06:26:00* Test Item Value Reference Range Comments PARTIAL THROMBOPLASTIN TIME (BEAKER) (test kjih=459) 28.9 seconds 22.5-36.0 PROTHROMBIN TIME/[id number] 06:25:00* Test Item Value Reference Range Comments PROTIME (BEAKER) (test guje=763) 12.8 seconds 11.7-14.7 INR (BEAKER) (test lpeg=523) 1.0 <=5.9 RECOMMENDED COUMADIN/WARFARIN INR THERAPY RANGESSTANDARD DOSE: 2.0 - 3.0 Inclu dk: PROPHYLAXIS for venous thrombosis, systemic embolization; TREATMENT for francisco ous thrombosis and/or pulmonary embolus.HIGH RISK: Target INR is 2.5-3.5 for pat ients with mechanical heart valves.CBC W/PLT COUNT & AUTO [id number] 06:16:00* Test Item Value Reference Range Comments WHITE BLOOD CELL COUNT (BEAKER) (test rudc=029) 9.1 K/ L 3.5-10.5 RED BLOOD CELL COUNT (BEAKER) (test wsbz=249) 5.10 M/ L 4.63-6.08 HEMOGLOBIN (BEAKER) (test zehv=439) 15.6 GM/DL 13.7-17.5 HEMATOCRIT (BEAKER) (test atna=293) 47.0 % 40.1-51.0 MEAN CORPUSCULAR VOLUME (BEAKER) (test aolf=503) 92.2 fL 79.0-92.2 MEAN CORPUSCULAR HEMOGLOBIN (BEAKER) (test mvjf=031) 30.6 pg 25.7-32.2 MEAN CORPUSCULAR HEMOGLOBIN CONC (BEAKER) (test sofi=291) 33.2 GM/DL 32.3-36.5 RED CELL DISTRIBUTION WIDTH (BEAKER) (test bzsv=749) 13.3 % 11.6-14.4 PLATELET COUNT (BEAKER) (test kdkh=661) 288 K/CU MM 150-450 MEAN PLATELET VOLUME (BEAKER) (test uzhj=007) 9.9 fL 9.4-12.4 NUCLEATED RED BLOOD CELLS (BEAKER) (test gtqp=716) 0 /100 WBC 0-0 NEUTROPHILS RELATIVE PERCENT (BEAKER) (test vdyx=839) 67 % LYMPHOCYTES RELATIVE PERCENT (BEAKER) (test mbbk=649) 21 % MONOCYTES RELATIVE PERCENT (BEAKER) (test kvze=747) 9 % EOSINOPHILS RELATIVE PERCENT (BEAKER) (test smds=710) 2 % BASOPHILS RELATIVE PERCENT (BEAKER) (test dumu=323) 1 % NEUTROPHILS ABSOLUTE COUNT (BEAKER) (test nkci=537) 6.11 K/ L 1.78-5.38 LYMPHOCYTES ABSOLUTE COUNT (BEAKER) (test vnlx=153) 1.89 K/ L 1.32-3.57 MONOCYTES ABSOLUTE COUNT (BEAKER) (test umyi=675) 0.83 K/ L 0.30-0.82 EOSINOPHILS ABSOLUTE COUNT (BEAKER) (test evln=928) 0.17 K/ L 0.04-0.54 BASOPHILS ABSOLUTE COUNT (BEAKER) (test nkmz=339) 0.06 K/ L 0.01-0.08 IMMATURE GRANULOCYTES-RELATIVE PERCENT (BEAKER) (test wnbd=5384) 1 % 0-1 FL, ESOPH, SWALLOW FUNCTION, WITH CINE OR [id number] 12:51:00Reason for exam:->Inability to intubate the CYNTHIA probe. patient reports history of recurrent vomiting due to his gastric band, although he denies swallowing problems. R/O strictureFINAL REPORT Esophagram. Clinical History: Inability to intubate the CYNTHIA probe. patient reports history of recurrent vomiting due to his gastric band, although he denies swallowing problems. R/O stricture Comparison Study: CT scan of the chest dated April 24, 2017 Findings: A single contrast Gastrografin esophagram was performed. The esophagus demonstrates no strictures or obvious masses. Tertiary contractions are identified. A gastric banding device is seen in place at the gastroesophageal junction with no high-grade stricture at this site noted. Contrast freely flows through the band. No hiatal hernia seen and there is no significant gastroesophageal reflux. IMPRESSION: No esophageal stricture seen. Tertiary contractions are identified. A gastric band is in place. Fluoroscopy time: 0.92 minutes. 41 images. Signed: Chinmay Simmons MDReport Verified Date/Time: 04/24/2017 12:51:45 Reading Location: [address] Consult Reading Room , HEART, [id number] 11:44:00Reason for Exam:->I48.0Addendum BeginsREPORT STATUS:A Addendum: I reviewed the nonvascular findings enumerated by Dr. Peña in his report and concur. There is a 6 x 3 mm opacity in the middle lobe seen best on image 69, magnified image group that probably represents scarring. However, a follow-up study in 4-6 months is recommended.. Signed: Burke Mehta MDReport Verified Date/Time: 04/24/2017 11:44:28 Reading Location: [place] [address] Angio Body Reading RoomAddendum EndsFINAL REPORT CT angiography of the pulmonary veins, 24 April 2017 INDICATION: This is a 67 years old male with history of atrial fibrillation presented here for pulmonary vein ostial mapping. This study is performed in an attempt to avoid invasive procedure. Technique: Spiral acquisition during intravenous contrast administration using a [employer] multislice cardiac CT scann er without prospective ECG triggering. Multiplanar reconstructions were perform ed interactively by the interpreting physician using an independent ([email or web address]) wor kstation. Please refer to the contrast sheet scanned in the EPIC system for the amount and route of contrast given. This exam was performed according to our [facility] artmental dose-optimisation programme, which includes automated exposure control , adjustment of the mA and/or kV according to patient size and/or use of iterati ve reconstruction technique. Dose modulation, iterative reconstruction, and/or w eight based adjustment of the mA/kV was utilized to reduce the radiation dose to as low as reasonably achievable. FINDINGS: VASCULAR: The pericardium appears n ormal. No pericardial effusion is identified. The central pulmonary artery is no rmal in calibre. The aortic root measure 3.8 cm in diameter that is minimally ec tatic with preserved sinotubular junction. The ascending thoracic aorta measure 4.2 x 4.1 cm in diameter that is also mildly ectatic. Thereafter, the transverse arch and descending thoracic aorta is normal in course and calibre with minimal calcific atherosclerosis identified in the descending thoracic aorta. There is no evidence for acute aortic pathology. The arch vessel branching pattern is nor mal, and the origins of the arch branch vessels are all widely patent. The cardi ac chambers demonstrate normal atrioventricular and ventriculoarterial concordan ce, and systemic and pulmonary venous return. The left ventricle is normal in si ze, and no abnormal masses are identified. The coronary artery origins are nor mal. In this nongated study, no obvious coronary artery calcification is seen. M ild left atrial prominence is identified. No thrombus is visualized in the left atrial appendage. Pulmonary vein morphology is normal with pairs of pulmonary ve ins on each side of the left atrium. There is no evidence for pulmonary vein lisa nosis. Quantitative pulmonary vein ostial mapping (measured utilizing MPR analys is) is as follows: Pulmonary vein Major axis Minor axis Cross-section al area R ight upper 23 mm 22 mm 4.2 cu4Rgake lower 17 mm 16 mm 2.1 zy7Sauj upper 19 mm 18 mm 2.7 lf7[place] lower 22 mm 15 mm 2.5 cm2 NON-VASCULAR: The visualised thyroid gland appears un remarkable. The chest wall and mediastinum appears normal. No significant adenop athy is seen in the mediastinum. In the topogram, the right hemidiaphragm appear s mildly elevated. In the lung windows, no obvious endobronchial lesion is seen and no pleural effusion is identified. Some atelectatic changes are seen. Overal l, no suspicious pulmonary nodule is identified. Small calcified granuloma is id entified near the dome at image 32 suggesting prior granulomatous disease. The l imited images of the upper abdomen reveal no significant abnormalities of the vi sualized organs. Patient is post lap band procedure. In the bony windows, no acu te bony pathology is seen. Diffuse degenerative changes is noted. IMPRESSIONS: 1. The left atrium is enlarged. The left atrial appendage is well seen and no t hrombus is present. Coronary artery origins. No obvious coronary artery calcific ation. 2. Pulmonary vein morphology is normal with pairs of pulmonary veins jenny aterally. There is no evidence for pulmonary vein stenosis. Quantitative pulmon alivia vein ostial mapping is as noted above. 3. Ectasia of the aortic root and mi d ascending thoracic aorta with dimensions as described above. No acute aortic p athology is seen. No aneurysmal dilation is identified. 4. No acute pulmonary p athology. 5. Other findings as described above 6. An addendum will be dictated regarding the non-vascular findings by the [facility] Radiologist. Signed: Bernard Ortiz MDReport Verified Date/Time: 04/24/2017 08:55:14 Reading Location: [place] [address] Cardiology MRI -[id number] 08:04:00* Test Item Value Reference Range Comments POC-CREATININE (JC) (test dbsq=0165) 1.1 mg/dL 0.6-1.3 TESTED AT [facility] [address] [facility] [address] POC-EGFR (JC) (test xpon=7478) 67 mL/min/1.73M2
--- OUTSIDE RECORDS SUMMARY | 2019-01-05 08:13 | XMS REPORT | Clinical Summary ---
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 Active celecoxib (CELEBREX) 200 Take 200 mg 0 MG capsule by mouth every 12 (twelve) hours . Active NIFEdipine (PROCARDIA-XL) Take 60 mg by 0 60 MG (OSM) 24 hr tablet mouth daily. Active SITagliptin (JANUVIA) 100 Take 100 mg 0 MG tablet by mouth daily. Active fenofibrate (TRICOR) 145 Take 145 mg 0 MG tablet by mouth daily. Active insulin glargine (LANTUS) Inject 50 0 100 unit/mL injection Units subcutaneousl y nightly Use as directed . Active exenatide microspheres Inject 0 (BYDUREON) 2 mg SERR subcutaneousl y once a week . Active apixaban (ELIQUIS) 5 mg Take 5 mg by 0 Tab tablet mouth 2 (two) times daily. Active aspirin 81 MG EC tablet Take 81 mg by 0 mouth 2 (two) times daily. Active glyBURIDE-metFORMIN Take 2 0 (GLUCOVANCE) 5-500 mg per tablets by 7 tablet mouth 2 (two) times daily with breakfast and dinner Resume on Friday. Active ranitidine (ZANTAC) 300 Take 300 mg 0 MG capsule by mouth every evening. Active TiZANidine (ZANAFLEX) 4 Take 4 mg by 0 MG capsule mouth 3 (three) times daily. Active omeprazole (PRILOSEC) 40 Take 40 mg by 0 MG capsule mouth daily. Active fluticasone-vilanterol Inhale by 0 (BREO ELLIPTA) 200-25 mouth via mcg/dose DsDv inhaler. Active insulin aspart U-100 Inject 8 0 (NOVOLOG) 100 unit/mL Units injection subcutaneousl y 3 (three) times daily before meals Per sliding scale . Active HYDROcodone-acetaminophen Take 1 tablet 0 (NORCO 10-325) 10-325 mg by mouth per tablet every 6 (six) hours as needed for Pain. Active losartan-hydroCHLOROthiaz Take 1 tablet 0 alex (HYZAAR) 100-25 mg by mouth per tablet daily. 01/05/2018 Discontinued benazepril (LOTENSIN) 20 Take 20 mg by 0 MG tablet mouth 2 (two) times daily. 01/06/2018 Discontinued metoprolol (TOPROL-XL) 25 Take 25 mg by 0 MG 24 hr tablet mouth 2 (two) times daily . 01/05/2018 Discontinued HYDROcodone-acetaminophen Take 1 tablet 0 (NORCO 5-325) 5-325 mg by mouth per tablet every 6 (six) hours as needed for Pain. 01/05/2018 Discontinued methocarbamol (ROBAXIN) Take 500 mg 0 500 MG tablet by mouth as needed. 01/05/2018 Discontinued fentaNYL (DURAGESIC) 25 Place 1 patch 0 mcg/hr patch onto the skin every third day. 01/05/2018 Discontinued flecainide (TAMBOCOR) 100 Take 1 tablet 30 tablet 3 04/26/201 MG tablet (100 mg 7 total) by mouth every 12 (twelve) hours. 01/06/2018 Discontinued enoxaparin (LOVENOX) 100 Inject 0 mg/mL Syrg subcutaneousl y 2 (two) times daily Unsure of dose . Active Problems Problem Noted Date PVC (premature ventricular contraction) 01/05/2018 Atypical atrial flutter 01/05/2018 Heart palpitations 09/14/2017 A-fib 04/25/2017 Encounters Care Team Description Date Type Specialty Sonya Dodson MD EPS & PULMONARY VEIN ISOLATION (PVI) & SAVITA 01/05/2018 Surgery Emily Glez MD 01/05/2018 Anesthesia Event Sonya Dodson MD Permanent atrial fibrillation (HCC) 01/05/2018 Hospital Cardiology - Encounter 01/06/2018 Sonya Dodson MD AF (paroxysmal atrial fibrillation) (HCC) 01/05/2018 Hospital Cardiology Encounter Sonya Dodson MD AF (paroxysmal atrial fibrillation) (HCC) (Primary Dx) 01/05/2018 Outside Orders Central Scheduling Sonya Dodson MD 01/05/2018 Orders Only Cardiology after 01/04/2018 Family History Medical History Relation Name Comments defects Father Cancer Father Diabetes Father Hearing loss Father Heart disease Father Hypertension Father Arthritis Mother Asthma Mother Hearing loss Mother Heart disease Mother Hypertension Mother Relation Name Status Comments Father Mother Social History Date Tobacco Use Types Packs/Day Years Used Never Smoker Smokeless Tobacco: Never Used Alcohol Use Drinks/Week oz/Week Comments Yes 1 Shots of 0.6 liquor Sex Assigned at Date Recorded Not on file Industry Job Start Date Occupation Not on file Not on file Not on file Travel End Travel History Travel Start No recent travel history available. Last Filed Vital Signs Time Taken Vital Sign Reading 01/06/2018 7:52 AM CDT Blood Pressure 196/80 01/06/2018 7:52 AM CDT Pulse 76 01/06/2018 7:52 AM CDT Temperature 37 C (98.6 F) 01/06/2018 7:52 AM CDT Respiratory Rate 18 01/06/2018 7:52 AM CDT Oxygen Saturation 92% 01/05/2018 3:18 PM CDT Inhaled Oxygen 30% Concentration 01/05/2018 10:05 AM CDT Weight 122.2 kg (269 lb 6.4 oz) 01/05/2018 10:05 AM CDT Height 188 cm (6' 2") 01/05/2018 10:05 AM CDT Body Mass Index 34.59 Plan of Treatment Not on file Procedures Comments Procedure Name Priority Date/Time Associated Diagnosis RHYTHM STRIP - SCAN 08/27/2018 12:31 PM CDT RHYTHM STRIP - SCAN 03/12/2018 6:00 AM CDT RHYTHM STRIP - SCAN 01/07/2018 11:30 AM CDT CARDIAC CATH REPORT - 01/07/2018 SCAN 11:30 AM CDT POCT-GLUCOSE METER Routine 01/06/2018 7:48 AM CDT ECG 12-LEAD Routine 01/06/2018 4:54 AM CDT CREATININE Routine 01/06/2018 1:38 AM CDT BUN Routine 01/06/2018 1:38 AM CDT ELECTROLYTE PANEL Routine 01/06/2018 1:38 AM CDT CBC (HEMOGRAM ONLY) Routine 01/06/2018 1:38 AM CDT APTT Routine 01/06/2018 1:38 AM CDT CBC (HEMOGRAM ONLY) Routine 01/05/2018 7:16 PM CDT BASIC METABOLIC PANEL (7) Routine 01/05/2018 7:16 PM CDT APTT Routine 01/05/2018 7:16 PM CDT POCT-ACT Routine 01/05/2018 6:56 PM CDT POCT-ACT Routine 01/05/2018 5:43 PM CDT ECHOCARDIOGRAM REPORT - 01/05/2018 SCAN 5:30 PM CDT EPS & PULMONARY VEIN 01/05/2018 Atrial fibrillation, ISOLATION (PVI) & SAVITA 5:30 PM CDT unspecified type (HCC) POCT-ACT Routine 01/05/2018 5:21 PM CDT POCT-ACT Routine 01/05/2018 4:58 PM CDT POCT-ACT Routine 01/05/2018 4:44 PM CDT TRANSESOPHAGEAL ECHO Routine 01/05/2018 AF (paroxysmal atrial 12:26 PM CDT fibrillation) (HCC) CBC W/PLT COUNT & AUTO STAT 01/05/2018 DIFFERENTIAL 11:07 AM CDT CBC W/PLT COUNT & AUTO STAT 01/05/2018 DIFFERENTIAL 11:07 AM CDT BASIC METABOLIC PANEL (7) STAT 01/05/2018 11:07 AM CDT ECG 12-LEAD Routine 01/05/2018 10:34 AM CDT Procedure Note - Interface, External Ris In - 01/05/2018 10:40 AM CDT Ventricula r Rate 99 BPM Atrial Rate 99 BPM QRS Duration 124 ms Q-T Interval 368 ms QTC Calculatio n(Bazett) 472 ms R Ruthven -54 degrees T Ruthven 94 degrees Atrial flutter with variable A-V block with premature ventricula r or aberrantly conducted complexes Left axis deviation Possible Lateral infarct (cited on or before 7) Inferior infarct , age undetermin ed Abnormal ECG When compared with ECG of 8 20:55, Atrial flutter has replaced Sinus rhythm Vent. rate has increased BY 37 BPM T wave inversion now evident in Lateral leads ECG 12-LEAD Routine 01/05/2018 10:34 AM CDT COLOR-FLOW MAPPING Routine 01/05/2018 AF (paroxysmal atrial 9:29 AM CDT fibrillation) ([facility]) CONT WAVE PULSED DOPPLER Routine 01/05/2018 AF (paroxysmal atrial 9:29 AM CDT fibrillation) ([facility]) after 01/04/2018 Results * RHYTHM STRIP - SCAN (08/27/2018 12:31 PM CDT) Only the most recent of 3 results within the time period is included. Narrative Performed At * CARDIAC CATH REPORT - SCAN (01/07/2018 11:30 AM CDT) Narrative Performed At * POC-Glucose meter (01/06/2018 7:48 AM CDT) POC-Glucose Meter 226 (H)Comment: TESTED AT 70 - 110 mg/dL [facility] [address] [facility] [address] Specimen Blood Performing Organization Address City/State/Zipcode Phone Number [place] [phone] [place] [address] [facility] * EKG 12 lead (01/06/2018 4:54 AM CDT) Only the most recent of 2 results within the time period is included. Specimen Narrative Performed At Ventricular Rate 73 BPM GE MUSE Atrial Rate 73 BPM P-R Interval 210 ms QRS Duration 110 ms Q-T Interval 424 ms QTC Calculation(Bazett) 467 ms P Ruthven 65 degrees R Ruthven 226 degrees T Ruthven 32 degrees Sinus rhythm with 1st degree A-V block Anterolateral infarct (cited on or before 25-APR-2017) Abnormal ECG When compared with ECG of 05-JAN-2018 10:34, Sinus rhythm has replaced Atrial flutter Questionable change in QRS axis T wave inversion no longer evident in Lateral leads Confirmed by MD WESLEY JOSEPH P ([id number]) on 01/06/2018 6:17:13 AM Procedure Note Interface, External Ris In - 01/06/2018 6:17 AM CDT Ventricular Rate 73 BPM Atrial Rate 73 BPM P-R Interval 210 ms QRS Duration 110 ms Q-T Interval 424 ms QTC Calculation(Bazett) 467 ms P Ruthven 65 degrees R Ruthven 226 degrees T Ruthven 32 degrees Sinus rhythm with 1st degree A-V block Anterolateral infarct (cited on or before 25-APR-2017) Abnormal ECG When compared with ECG of 05-JAN-2018 10:34, Sinus rhythm has replaced Atrial flutter Questionable change in QRS axis T wave inversion no longer evident in Lateral leads Confirmed by MD WESLEY JOSEPH P ([id number]) on 01/06/2018 6:17:13 AM Performing Organization Address City/[facility]/Zipcode Phone Number [facility] * aPTT (01/06/2018 1:38 AM CDT) Only the most recent of 2 results within the time period is included. PTT 26.4 22.5 - 36.0 seconds [facility] Specimen Blood Narrative Performed At 6 hours after starting heparin infusion and as indicated per sliding scale [facility] Performing Organization Address City/[facility] Phone Number [facility] [address] [place] [address] MED[facility]ENTER * CBC (Hemogram only) (01/06/2018 1:38 AM CDT) Only the most recent of 2 results within the time period is included. WBC 12.1 (H) 3.5 - 10.5 K/L [facility] RBC 3.95 (L) 4.63 - 6.08 M/L [facility] Hemoglobin 12.0 (L) 13.7 - 17.5 GM/DL [facility] Hematocrit 36.8 (L) 40.1 - 51.0 % [facility] MCV 93.2 (H) 79.0 - 92.2 fL [facility] MCH 30.4 25.7 - 32.2 pg [facility] MCHC 32.6 32.3 - 36.5 GM/DL [facility] RDW 13.0 11.6 - 14.4 % [facility] Platelets 257 150 - 450 K/CU MM [facility] MPV 10.0 9.4 - 12.4 fL [facility] nRBC 0 0 - 0 /100 WBC [facility] Specimen Blood Performing Organization Address City/[facility]/Zipcode Phone Number [address] [facility] * BUN (01/06/2018 1:38 AM CDT) BUN 14 7 - 21 mg/dL [facility] Specimen Blood Performing Organization Address City/[facility]/Zipcode Phone Number [address] [facility] * Creatinine (01/06/2018 1:38 AM CDT) Creatinine 0.83 0.57 - 1.25 mg/dL [facility] EGFR 93Comment: ESTIMATED GFR IS mL/min/1.[address] [facility] NOT ACCURATE CREATININE [facility] CLEARANCE IN PREDICTING GLOMERULAR FILTRATION RATE. ESTIMATED GFR IS NOT APPLICABLE FOR DIALYSIS PATIENTS. Specimen Blood Performing Organization Address City/[facility]/Zipcode Phone Number [address] [facility] * Electrolytes (01/06/2018 1:38 AM CDT) Sodium 141 136 - 145 meq/L [facility] Potassium 3.8 3.5 - 5.1 meq/L [facility] Chloride 109 (H) 98 - 107 meq/L [facility] CO2 24 22 - 29 meq/L [facility] Specimen Blood Performing Organization Address City/State/[place] [address] [phone] [place] [address] * Basic metabolic panel (01/05/2018 7:16 PM CDT) Only the most recent of 2 results within the time period is included. Sodium 142 136 - 145 meq/L [facility] Potassium 3.8 3.5 - 5.1 meq/L [facility] Chloride 108 (H) 98 - 107 meq/L [facility] CO2 28 22 - 29 meq/L [facility] BUN 11 7 - 21 mg/dL [facility] Creatinine 0.80 0.57 - 1.25 mg/dL [facility] Glucose 122 (H) 70 - 105 mg/dL [facility] Calcium 8.6 8.4 - 10.2 mg/dL [facility] EGFR 97Comment: ESTIMATED GFR IS mL/min/1.[address] [facility] NOT ACCURATE CREATININE [facility] CLEARANCE IN PREDICTING GLOMERULAR FILTRATION RATE. ESTIMATED GFR IS NOT APPLICABLE FOR DIALYSIS PATIENTS. Specimen Blood Performing Organization Address City/[facility] [place] [address] [phone] [place] [address] * POC ACTIVATED CLOTTING TIME (01/05/2018 6:56 PM CDT) Only the most recent of 5 results within the time period is included. Activated Clotting Time 142Comment: TESTED AT [facility] sec [address] Specimen Blood Performing Organization Address City/State/Zipcode Phone Number [address] [facility] * ECHOCARDIOGRAM REPORT - SCAN (01/05/2018 5:30 PM CDT) Narrative Performed At * Transesophageal echo (01/05/2018 12:26 PM CDT) Ejection Fraction [facility] Specimen Narrative Performed At Transesophageal Echocardiography Report (CYNTHIA) [facility] Demographics [facility] Patient Name Andrea HENDRICKSON of Study 01/05/2018 DELROY [id number] Male Visit Number [id number] Room Number Number Date of Birth2Referring Physician West Hassan Age67 year(s)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 Risks, complications and alternative treatments were reviewed. Written consent was obtained. Procedure Type of Study CYNTHIA procedure:TRANSESOPHAGEAL ECHO (Routine) Indications:Atrial fibrillation. Clinical History Atrial Fibrillation/flutter Diabetes Hypertension 04/25/17 EPS & PVI Height: 74 inches Weight: 122.02 kg (269 lbs) BSA: 2.46 m^2 BMI: 34.54 kg/m^2 HR: 98 bpm BP: 181/82 mmHg CYNTHIA Performed By: the attending alone Procedure Informed Consent Procedure consent form obtained. CYNTHIA procedure notes The patient was counseled and informed consent was obtained. Topical and intravenous anesthesia was administered. The esophagus was intubated without difficulty. The probe was passed and all standard echocardiographic views were obtained. IV saline contrast echo examination was performed with CYNTHIA. The patient tolerated the procedure well. Anesthesia History Findings Versed 9 MG Fentanyl 175 MCG. Summary No LA appendage Thrombus visualized. Signature Findings Left Normal left ventricular chamber size. Normal wall thickness. VentricleNormal overall lower limits left ventricular systolic function in the presence of AFIB and adalid of 90s. No apparent segmental wall motion abnormalities. Left AtriumLA is enlarged but severity assessment is unreliable due to know CYNTHIA sector size limitation. No LA appendage Thrombus visualized. RightThe right ventricular chamber size and systolic function are Ventriclewithin normal limits. Right Atrium RA size is normal. Atrial IV saline contrast injection was negative for a PFO (patent Septum foramen ovale) at rest . Aortic Valve Normal AoV structure. Mitral Valve Mild MV leaflet thickening. Mild mitral regurgitation. TricuspidTV structure is normal. ValveUnable to estimate peak systolic PA pressure; inadequate TR velocity signal. Pulmonic Normal PV structure. ValveA trace of pulmonary regurgitation. AortaAortic root size (Sinus of Valsalva diameter) is mildly dilated. 3.8 cm Grade 2 plaque (extensive intimal thickening) in the descending thoracic aorta . PericardiumNo pericardial effusion is visualized. Left Ventricle LVEDV Valle's:100.24 ml LVESV Valle's:46.61 ml LVEF Valle's: 53.5 % LVEDVI: 41 ml/m^2 LVESVI: 19 ml/m^2 Procedure Note Interface, External Ris In - 01/05/2018 4:37 PM CDT Transesophageal Echocardiography Report (CYNTHIA) Demographics Patient Name ZEKE HENDRICKSON Date of Study 01/05/2018 DELROY Gender Male Visit Number [id number] Race Unknown Room Number Number Date of 1950 Referring Physician West Hassan Age 67 year(s) Hogshead Mat Assembler Shay rBadley RDCS Interpreting Sulaiman Wesley Physician The procedure was explained in detail to the patient. Risks, complications and alternative treatments were reviewed. Written consent was obtained. Procedure Type of Study CYNTHIA procedure:TRANSESOPHAGEAL ECHO (Routine) Indications:Atrial fibrillation. Clinical History Atrial Fibrillation/flutter Diabetes Hypertension 04/25/17 EPS & PVI Height: 74 inches Weight: 122.02 kg (269 lbs) BSA: 2.46 m^2 BMI: 34.54 kg/m^2 HR: 98 bpm BP: 181/82 mmHg CYNTHIA Performed By: the attending alone Procedure Informed Consent Procedure consent form obtained. CYNTHIA procedure notes The patient was counseled and informed consent was obtained. Topical and intravenous anesthesia was administered. The esophagus was intubated without difficulty. The probe was passed and all standard echocardiographic views were obtained. IV saline contrast echo examination was performed with CYNTHIA. The patient tolerated the procedure well. Anesthesia History Findings Versed 9 MG Fentanyl 175 MCG. Summary No LA appendage Thrombus visualized. Signature Findings Left Normal left ventricular chamber size. Normal wall thickness. Ventricle Normal overall lower limits left ventricular systolic function in the presence of AFIB and adalid of 90s. No apparent segmental wall motion abnormalities. Left Atrium LA is enlarged but severity assessment is unreliable due to know CYNTHIA sector size limitation. No LA appendage Thrombus visualized. Right The right ventricular chamber size and systolic function are Ventricle within normal limits. Right Atrium RA size is normal. Atrial IV saline contrast injection was negative for a PFO (patent Septum foramen ovale) at rest . Aortic Valve Normal AoV structure. Mitral Valve Mild MV leaflet thickening. Mild mitral regurgitation. Tricuspid TV structure is normal. Valve Unable to estimate peak systolic PA pressure; inadequate TR velocity signal. Pulmonic Normal PV structure. Valve A trace of pulmonary regurgitation. Aorta Aortic root size (Sinus of Valsalva diameter) is mildly dilated. 3.8 cm Grade 2 plaque (extensive intimal thickening) in the descending thoracic aorta . Pericardium No pericardial effusion is visualized. Left Ventricle LVEDV Valle's:100.24 ml LVESV Valle's:46.61 ml LVEF Valle's: 53.5 % LVEDVI: 41 ml/m^2 LVESVI: 19 ml/m^2 Performing Organization Address City/State/[facility] Phone Number [facility] * CBC with platelet count + automated diff (01/05/2018 11:07 AM CDT) WBC 10.8 (H) 3.5 - 10.5 K/L [facility] RBC 4.58 (L) 4.63 - 6.08 M/L [facility] Hemoglobin 13.7 13.7 - 17.5 GM/DL [facility] Hematocrit 41.6 40.1 - 51.0 % [facility] MCV 90.8 79.0 - 92.2 fL [facility] MCH 29.9 25.7 - 32.2 pg [facility] MCHC 32.9 32.3 - 36.5 GM/DL [facility] RDW 12.9 11.6 - 14.4 % [facility] Platelets 285 150 - 450 K/CU MM [facility] MPV 9.5 9.4 - 12.4 fL [facility] nRBC 0 0 - 0 /100 WBC [facility] % Neutros 77 % [facility] % Lymphs 14 % [facility] % Monos 8 % [facility] % Eos 1 % [facility] % Baso 0 % [facility] # Neutros 8.32 (H) 1.78 - 5.38 K/L [facility] # Lymphs 1.48 1.32 - 3.57 K/L [facility] # Monos 0.86 (H) 0.30 - 0.82 K/L [facility] # Eos 0.05 0.04 - 0.54 K/L [facility] # Baso 0.03 0.01 - 0.08 K/L [facility] Immature 1 0 - 1 % [facility] Granulocytes-Relative [facility] Specimen Blood Performing Organization Address City/State/Zipcode Phone Number [facility] [address] [place] [address] MEDICAL [facility]ENTER after 01/04/2018 Insurance Payer Benefit Subscriber ID Type Phone Address Plan / Group [employer] - MEDICARE MGD CARE [employer] xxxxxxxx [phone] [address] [place] [address] HMO POS PPO (Home) [place] [address] Advance Directives For more information, please contact: [facility] [address] [place], [place] [id number] Date Inactivated Comments Code Status Date Activated 01/05/2018 1:44 PM Full Code 01/05/2018 12:52 PM This code status was determined by: Patient 01/05/2018 12:52 PM Full Code 01/05/2018 10:06 AM This code status was determined by: Patient 09/15/2017 7:49 PM Full Code 09/14/2017 11:09 PM This code status was determined by: Patient 05/28/2017 10:50 AM Full Code 05/28/2017 9:51 AM This code status was determined by: Patient 04/26/2017 1:29 PM Full Code 04/25/2017 5:43 AM This code status was determined by: Patient
[2019-01-05] MEDS ORDERED: DEXAMETHASONE SOD PHOS 10 MG/1 ML VIAL ONE (08:36)
[2019-01-05] MEDS ORDERED: CELECOXIB 200 MG CAP ONE (08:36)
[2019-01-05] MEDS ORDERED: GABAPENTIN 300 MG CAP ONE (08:37)
[2019-01-05] MEDS ORDERED: CEFAZOLIN SOD 1 GM/NS 50ML 100 ML IV ONE (08:37)
[2019-01-05] MEDS ORDERED: TRANEXAMIC ACID 1,000 MG/10 ML ML ONE (09:40)
[2019-01-05] MEDS ORDERED: SODIUM CHLORIDE 0.9% 500ML 500 ML ONE (09:40)
[2019-01-05] MEDS ORDERED: BACITRACIN 50,000 UNIT VIAL ONE (09:40)
[2019-01-05] MEDS ORDERED: VANCOMYCIN HCL 1,000 MG ONE (09:40)
[2019-01-05] MEDS ORDERED: KETOROLAC TROMETHAMINE 30 MG/ML VIAL IV PRN (12:15)
[2019-01-05] MEDS ORDERED: DOCUSATE SODIUM 100 MG CAP PO PRN (12:15)
[2019-01-05] MEDS ORDERED: HYDROCODONE/APAP 7.5MG-325MG 1 EA TAB PO PRN (12:15)
[2019-01-05] MEDS ORDERED: ONDANSETRON HCL INJ 2MG/ML 2ML 2 MG/ML VIAL IV PRN (12:15)
[2019-01-05] MEDS ORDERED: PROMETHAZINE HCL (IM) 25 MG/ML VIAL IM PRN (12:15)
[2019-01-05] MEDS ORDERED: DIPHENHYDRAMINE HCL INJ 50 MG/ML VIAL IM/IV PRN (12:15)
[2019-01-05] MEDS ORDERED: HYDROCODONE/APAP 5MG-325MG TAB PO PRN (12:15)
[2019-01-05] MEDS ORDERED: ACETAMINOPHEN 650 MG SUPP PR PRN (12:15)
[2019-01-05] MEDS ORDERED: FENTANYL CITRATE/PF 100MCG/2 ML INJ ONE ×2 (12:31→18:29)
[2019-01-05] MEDS ORDERED: ACETAMINOPHEN 1000 MG/100 ML 100 ML IV ONE (12:39)
--- NOTE | 2019-01-05 12:54 | Diagnostic Imaging Report ---
EXAM: KNEE RIGHT 1-2 VIEWS DATE: 01/05/2019 12:13 PM INDICATION: Postop COMPARISON: None FINDINGS: There are postsurgical changes from right knee arthroplasty. Surgical hardware appears intact and in anatomic alignment. There is no evidence for acute fracture or dislocation. There is expected subcutaneous gas present from the recent surgical procedure. Overlying skin guadalupe noted. No radiopaque foreign body appreciated. IMPRESSION: Expected postsurgical changes from recent right knee arthroplasty. Signed by: Dr. Milton Leal MD on 01/05/2019 12:51 PM
[2019-01-05] MEDS ORDERED: HYDROMORPHONE 1MG/1ML INJ ONE (12:57)
--- OUTSIDE RECORDS SUMMARY | 2019-01-05 13:06 | XMS REPORT | Clinical Summary ---
Author Author [facility] Organization [facility] Address Unknown Phone Unavailable Care Team Providers Care Software Analyst Name Role Phone Wander Correa DO PCP [...] Comments Vital Sign 160/57 04/07/2018 1:45 PM PERIODONTAL ASSISTANT Blood Pressure 59 04/07/2018 1:45 PM PERIODONTAL ASSISTANT Pulse 37.1 C (98.7 F) 04/07/2018 10:52 AM PERIODONTAL ASSISTANT Temperature 20 04/07/2018 10:52 AM PERIODONTAL ASSISTANT Respiratory Rate 96% 04/07/2018 10:52 AM PERIODONTAL ASSISTANT Oxygen Saturation - - Inhaled Oxygen Concentration 126 kg (278 lb) 04/06/2018 12:25 PM PERIODONTAL ASSISTANT Weight 188 cm (6' 2") 04/06/2018 12:25 PM PERIODONTAL ASSISTANT Height 35.69 04/06/2018 12:25 PM PERIODONTAL ASSISTANT Body Mass Index Plan of Treatment Health Maintenance Due Date Last Done Comments DIABETIC RETINAL EYE EXAM 1952 DIABETIC FOOT EXAM 1962 COLONOSCOPY SCREENING 2002 SHINGLES VACCINES (#1) 2002 65+ PNEUMOCOCCAL VACCINE 2017 (1 of 2 - PCV13) URINE MICROALBUMIN 10/04/2017 10/04/2016, 11/15/2015 INFLUENZA VACCINE 12/10/2018 02/09/2017 Procedures Comments Procedure Name Priority Date/Time Associated Diagnosis POC GLUCOSE Routine 04/07/2018 11:33 AM PERIODONTAL ASSISTANT POC GLUCOSE Routine 04/07/2018 5:52 AM PERIODONTAL ASSISTANT TROPONIN Timed 04/06/2018 9:00 PM PERIODONTAL ASSISTANT POC GLUCOSE Routine 04/06/2018 8:15 PM PERIODONTAL ASSISTANT TROPONIN Timed 04/06/2018 5:24 PM PERIODONTAL ASSISTANT POC GLUCOSE Routine 04/06/2018 5:23 PM PERIODONTAL ASSISTANT POC GLUCOSE Routine 04/06/2018 3:08 PM PERIODONTAL ASSISTANT URINALYSIS SCREEN AND STAT 04/06/2018 MICROSCOPY, WITH REFLEX 2:50 PM PERIODONTAL ASSISTANT TO CULTURE URINE CULTURE STAT 04/06/2018 2:50 PM PERIODONTAL ASSISTANT ECG 12-LEAD STAT 04/06/2018 1:48 PM PERIODONTAL ASSISTANT ECG ED PRELIMINARY Routine 04/06/2018 INTERPRETATION 1:03 PM PERIODONTAL ASSISTANT XR CHEST 2 VW STAT 04/06/2018 12:50 PM PERIODONTAL ASSISTANT HEMOGLOBIN A1C Routine 04/06/2018 12:32 PM PERIODONTAL ASSISTANT LIPID PANEL Routine 04/06/2018 12:32 PM PERIODONTAL ASSISTANT ESTIMATED GFR STAT 04/06/2018 12:30 PM PERIODONTAL ASSISTANT B NATRIURETIC PEPTIDE STAT 04/06/2018 12:30 PM PERIODONTAL ASSISTANT PARTIAL THROMBOPLASTIN STAT 04/06/2018 TIME (PTT) 12:30 PM PERIODONTAL ASSISTANT PROTHROMBIN TIME WITH INR STAT 04/06/2018 12:30 PM PERIODONTAL ASSISTANT TROPONIN STAT 04/06/2018 12:30 PM PERIODONTAL ASSISTANT CREATINE KINASE, TOTAL STAT 04/06/2018 (CPK) 12:30 PM PERIODONTAL ASSISTANT COMPREHENSIVE METABOLIC STAT 04/06/2018 PANEL 12:30 PM PERIODONTAL ASSISTANT HC COMPLETE BLD COUNT STAT 04/06/2018 W/AUTO DIFF 12:30 PM PERIODONTAL ASSISTANT ECG 12-LEAD STAT 04/06/2018 12:18 PM PERIODONTAL ASSISTANT ECG 12-LEAD STAT 04/06/2018 12:15 PM PERIODONTAL ASSISTANT after 01/04/2018 Results * POC glucose (04/07/2018 11:33 AM PERIODONTAL ASSISTANT) Only the most recent of 5 results within the time period is included. POC glucose 137 (H) 65 - 99 mg/dL [place] Comment: [facility] Meter ID: [id number] [facility] Screedman/Laborer: Vinayakrey Hernandez Specimen Performing Organization Address [facility] Cent[facility]ode Phone Number [address] [place] [address] PATHOLOGY AND GENOMIC MEDICINE [address] * Troponin (04/06/2018 9:00 PM PERIODONTAL ASSISTANT) Only the most recent of 3 results within the time period is included. [facility] Troponin <0.300 0.000 - 0.300 ng/mL [place] Comment: [facility] 0.30 - 1.49 [facility] ng/mlMay indicate increased risk of acute coronary syndrome. >=1.5 ng/ml Consistent with acute myocardial infarction. The diagnostic value of a single normal or non-diagnostic result is questionable.Serial samples at 2-6 hour intervals are required to rule out acute myocardial injury. Specimen Plasma specimen Performing Organization Address [facility] Centercomi Phone Number [address] [place] [address] PATHOLOGY AND GENOMIC MEDICINE [address] * Urinalysis screen and microscopy, with reflex to culture (04/06/2018 2:50 PM PERIODONTAL ASSISTANT) [facility] Specimen site Clean catch [facility] Color, UA Yellow [facility] Appearance, UA Clear [facility] Specific 1.026 1.001 - 1.035 [place] gravity, UA [facility] pH, UA 5.0 5.0 - 8.5 [facility] Protein, UA Negative Negative [facility] Glucose, UA Negative Negative [facility] Ketones, UA Negative Negative [facility] Bilirubin, UA Negative Negative [facility] Blood, UA Negative Negative [facility] Nitrite, UA Negative Negative [facility] Urobilinogen, Negative <2.0 [facility] Leukocyte Negative Negative [place] esterase, UA [facility] Epithelial Few /HPF [place] cells, UA [facility] Round Few 0 - 1 /HPF [place] epithelial [facility] cells, UA [facility] WBC, UA 0-5 0 - 1 /HPF [facility] RBC, UA 0-5 0 - 5 /HPF [facility] Bacteria, UA None seen None seen [facility] Yeast, UA None seen [facility] Yeast with None seen [place] pseudohyphae, [facility] Specimen Urine Performing Organization Address City/[facility] Centercode Phone Number [address] [place] [address] PATHOLOGY AND GENOMIC MEDICINE [address] * Urine culture (04/06/2018 2:50 PM PERIODONTAL ASSISTANT) Pathologist [facility] Urine culture SEE COMMENTComment: [place] Bacteriuria screen negative. [facility] Specimen Urine Performing Organization Address [facility] Phone Number [address] [place] [address] PATHOLOGY AND GENOMIC MEDICINE [address] * ECG 12 lead (04/06/2018 1:48 PM PERIODONTAL ASSISTANT) Only the most recent of 3 results [...] Specimen Narrative Performed At Performing Organization Address City/[facility] Centercode Phone Number [facility] [address] [place] [address] * ECG ED Preliminary Interpretation - Not an Order (04/06/2018 1:03 PM PERIODONTAL ASSISTANT) Narrative Performed At Jovani Leigh Jr., MD 04/07/20188:40 AM ECG ED Preliminary Interpretation - Not an Order Performed by: Jovani Leigh Jr., MD Authorized by: Jovani Leigh Jr., MD ECG reviewed by ED Physician in the absence of a career services assistant: yes (read at 1348) Previous ECG: Previous ECG:Unavailable Interpretation: Interpretation: normal Rate: ECG rate:51 ECG rate assessment: bradycardic Rhythm: Rhythm: sinus bradycardia Ectopy: Ectopy: none QRS: QRS axis:Normal (106) Conduction: Conduction: normal ST segments: ST segments:Normal T waves: T waves: normal Q waves: Q waves:V1 and V2 * XR Chest 2 Vw (04/06/2018 12:50 PM PERIODONTAL ASSISTANT) Specimen Narrative Performed At EXAMINATION:XR CHEST 2 [...] 1. There is no acute cardiopulmonary disease. [id number] Procedure Note Interface, Radiology Results Incoming - 04/06/2018 1:05 PM PERIODONTAL ASSISTANT EXAMINATION: XR CHEST 2 VW CLINICAL HISTORY: [...] 1. There is no acute cardiopulmonary disease. [id number] Performing Organization Address City/State/Zipcode Phone Number [facility] [address] [place] [address] * Hemoglobin A1c (04/06/2018 12:32 PM PERIODONTAL ASSISTANT) Hemoglobin A1C 7.3 (H) 4.0 - 6.0 % [place] Comment: [facility] Less than 6% - Goal of therapy for Type II Diabetes Less than 7%-Goal of therapy for Type I Diabetes Less than 8%-Accepta ble control for Type I or Type II Diabetes Greater than 8%-Unacceptabl e control; action indicated. ([id number]) Specimen Blood Performing Organization Address City/[facility] Centercode Phone Number [facility] [address] [place] [address] PATHOLOGY AND GENOMIC MEDICINE [address] [place] [address] [facility] * Lipid panel (04/06/2018 12:32 PM PERIODONTAL ASSISTANT) Cholesterol 152 <200 mg/dL [facility] Triglycerides 200 (H) <150 mg/dL [facility] HDL cholesterol 43 >40 mg/dL [facility] LDL cholesterol 96Comment: Result obtained by <100 mg/dL [place] direct LDL measurement [facility] Lipid panel [facility] interpretation Comment: [facility] Total Cholesterol [facility] (mg/dL) <200 Desirable 200-239Borderline -high >=240High [...] mg/dL) Specimen Plasma specimen Performing Organization Address [facility]/Zipcode Phone Number [address] [place] [address] PATHOLOGY AND GENOMIC MEDICINE [address] [place] [address] [facility] * Estimated GFR (04/06/2018 12:30 PM PERIODONTAL ASSISTANT) [facility] Estimated GFR >=90 mL/min/1.73 m2 [place] Comment: [facility] rpretation G1 >=90 Normal or high G2 60-89Mildly decreased [id number] Mildly to moderately decreased P3r03-13 Moderately to severely decreased G4 15-29Severely decreased G5 <15Kidney failure The eGFR was calculated using the Chronic Kidney Disease Epidemiology Collaboration (CKD-EPI) equation. Interpretation is based on recommendations of the National Kidney Foundation-Kidney Disease Outcomes Quality Initiative (NKF-KDOQI) published in 2014. Specimen Plasma specimen Performing Organization Address [facility] Centercomi Phone Number [address] * Partial thromboplastin time, activated (04/06/2018 12:30 PM PERIODONTAL ASSISTANT) [facility] PTT 28.9 23.0 - 36.0 sec [place] Comment: DORIS LEACH PTT therapeutic range for [facility] unfractionated heparin is 61.0-112.0 seconds which corresponds to Anti-Xa 0.3-0.7 U/ml. Specimen Blood Performing Organization Address [facility] Phone Number [address] * Prothrombin time with INR (04/06/2018 12:30 PM PERIODONTAL ASSISTANT) [facility] Prothrombin 13.8 11.5 - 14.5 sec [facility] INR 1.1 [place] Comment: DORIS MEDINA The International Normalized [facility] Ratio (INR) is a therapeutic monitoring tool for patients who are stable on oral anticoagulant therapy. An INR of 2.0-3.0 is suggested for deep vein thrombosis/pulmonary embolism. Specimen Blood Performing Organization Address [facility] Centercode Phone Number [address] [place] [address] PATHOLOGY [address] * CBC with platelet and differential (04/06/2018 12:30 PM PERIODONTAL ASSISTANT) [facility] WBC 8.51 4.50 - 11.00 k/uL [facility] RBC 4.47 4.40 - 6.00 m/uL [facility] HGB 13.0 (L) 14.0 - 18.0 g/dL [facility] HCT 40.4 (L) 41.0 - 51.0 % [facility] MCV 90.4 82.0 - 100.0 fL [facility] MCH 29.1 27.0 - 34.0 pg [facility] MCHC 32.2 31.0 - 37.0 g/dL [facility] RDW - SD 44.6 37.0 - 55.0 fL [facility] MPV 9.7 8.8 - 13.2 fL [facility] Platelet count 248 150 - 400 k/uL [facility] Nucleated RBC 0.00 /100 WBC [facility] Neutrophils 74.7 (H) 39.0 - 69.0 % [facility] Lymphocytes 14.3 (L) 25.0 - 45.0 % [facility] Monocytes 9.0 0.0 - 10.0 % [facility] Eosinophils 1.2 0.0 - 5.0 % [facility] Basophils 0.4 0.0 - 1.0 % [facility] Specimen Blood Performing Organization Address City/[facility] Centercode Phone Number [address] [place] [address] PATHOLOGY AND GENOMIC MEDICINE [address] * B natriuretic peptide (04/06/2018 12:30 PM PERIODONTAL ASSISTANT) [facility] BNP 44 0 - 100 pg/mL [facility] Specimen Blood Performing Organization Address [facility] Centercode Phone Number [address] [place] [address] PATHOLOGY AND GENOMIC MEDICINE [address] * Creatine kinase, total (CPK) (04/06/2018 12:30 PM PERIODONTAL ASSISTANT) Pathologist [facility] Creatine kinase 237 39 - 308 U/L [facility] Specimen Plasma specimen Performing Organization Address City/State/Zipcode Phone Number [facility] [address] [place] [address] PATHOLOGY AND GENOMIC MEDICINE [facility] [address] * Comprehensive metabolic panel (04/06/2018 12:30 PM PERIODONTAL ASSISTANT) Pathologist [facility] Sodium 141 135 - 148 mEq/L [facility] Potassium 4.3 3.5 - 5.0 mEq/L [facility] Chloride 103 98 - 112 mEq/L [facility] CO2 27 24 - 31 mEq/L [facility] Anion gap 11@ANIO 7 - 15 mEq/L [facility] BUN 16 8 - 23 mg/dL [facility] Creatinine 0.80 0.70 - 1.20 mg/dL [facility] Glucose 181 (H) 65 - 99 mg/dL [facility] Calcium 9.7 8.8 - 10.2 mg/dL [facility] Protein 7.1 6.3 - 8.3 g/dL [place] Comment: [facility] 4.6-7.0 g/dL 1 week 4.4-7.6 g/dL 7 months-1year 5.1-7.3 g/dL 1-2 years5.6-7 .5 g/dL >3 years6.0-8 .0 g/dL 18-150 6.3-8.3 g/dL Albumin 4.5 3.5 - 5.0 g/dL [facility] A/G ratio 1.7 0.7 - 3.8 [facility] Alkaline 102 40 - 129 U/L [place] phosphatase [facility] AST 20 10 - 50 U/L [facility] ALT 24 5 - 50 U/L [facility] Total bilirubin 0.3 0.0 - 1.2 mg/dL [facility] Specimen Plasma specimen Performing Organization Address City/State/Zipcode [place] [address] [place] [address] PATHOLOGY AND GENOMIC MEDICINE [facility] [address] [place] [address] [facility] after 01/04/2018 Insurance Type Payer Benefit Subscriber ID Effective Phone Address Plan / Dates Group HMO AETNA MEDICARE AETNA xxxxxxxx 2017- MEDICARE Present HMO/PPO [facility] (Home) [place] [address] Advance Directives For more information, please contact: [phone] Patient Director Field Services Explanation Type Date Recorded Advance Directives, 04/06/2018 2:08 PM Living Will and Medical Power of [place]
--- OUTSIDE RECORDS SUMMARY | 2019-01-05 13:07 | XMS REPORT | Clinical Summary ---
Author Author CHACE BIOSAFE Organization [facility] teextee i-nexus Address Unknown Phone Unavailable Care Team Providers Care Seafood Packer Name Role Phone Wander Correa PCP Allergies [...] ms QTC Calculatio n(Bazett) 472 ms R Floydada -54 degrees T Floyd[place] 94 degrees Atrial flutter with variable A-V [...] AF (paroxysmal atrial 9:29 AM CDT fibrillation) ([facility]) CONT WAVE PULSED DOPPLER Routine 01/05/2018 AF (paroxysmal atrial 9:29 AM CDT fibrillation) ([facility]) after 01/04/2018 Results * RHYTHM STRIP - SCAN (08/27/2018 12:31 PM CDT) Only the most recent of 3 results within the time period is included. Narrative Performed At * CARDIAC CATH REPORT - SCAN (01/07/2018 11:30 AM CDT) Narrative Performed At * POC-Glucose meter (01/06/2018 7:48 AM CDT) POC-Glucose Meter 226 (H)Comment: TESTED AT 70 - 110 mg/dL [facility] [address] [facility] [id number] Specimen Blood Performing Organization Address City/State/Zipcode Phone Number [phone] [place] [address] [facility] * EKG 12 lead (01/06/2018 4:54 AM CDT) Only the most recent of 2 results within the time period is included. Specimen Narrative Performed At Ventricular Rate 73 BPM GE MUSE Atrial Rate 73 BPM P-R Interval 210 ms QRS Duration 110 ms Q-T Interval 424 ms QTC Calculation(Bazett) 467 ms P Floydada 65 degrees R Floyd[place] 226 degrees T Floyd[place] 32 degrees Sinus rhythm with 1st degree A-V block Anterolateral infarct (cited on or before 25-APR-2017) Abnormal ECG When compared with ECG of 05-JAN-2018 10:34, Sinus rhythm has replaced Atrial flutter Questionable change in QRS axis T wave inversion no longer evident in Lateral leads Confirmed by MD WESLEY JOSEPH P ([id number]) on 01/06/2018 6:17:13 AM Procedure Note Interface, External Ris In - 01/06/2018 6:17 AM CDT Ventricular Rate 73 BPM Atrial Rate 73 BPM P-R Interval 210 ms QRS Duration 110 ms Q-T Interval 424 ms QTC Calculation(Bazett) 467 ms P Floyd[place] 65 degrees R [place] 226 degrees T [place] 32 degrees Sinus rhythm with 1st degree A-V block Anterolateral infarct (cited on or before 25-APR-2017) Abnormal ECG When compared with ECG of 05-JAN-2018 10:34, Sinus rhythm has replaced Atrial flutter Questionable change in QRS axis T wave inversion no longer evident in Lateral leads Confirmed by MD WESLEY JOSEPH P ([id number]) on 01/06/2018 6:17:13 AM Performing Organization Address City/[facility]/Zipcode Phone Number GE MUSE * aPTT (01/06/2018 1:38 AM CDT) Only the most recent of 2 results within the time period is included. PTT 26.4 22.5 - 36.0 seconds [facility] Specimen Blood Narrative Performed At 6 hours after starting heparin infusion and as indicated per sliding scale [facility] Performing Organization Address City/[facility] Phone Number [facility] [address] [place] [address] [facility]ENTER * CBC (Hemogram only) (01/06/2018 1:38 AM CDT) Only the most recent of 2 results within the time period is included. WBC 12.1 (H) 3.5 - 10.5 K/L [facility] RBC 3.95 (L) 4.63 - 6.08 M/L [facility] Hemoglobin 12.0 (L) 13.7 - 17.5 GM/DL [facility] Hematocrit 36.8 (L) 40.1 - 51.0 % [facility] MCV 93.2 (H) 79.0 - 92.2 fL [facility] MCH 30.4 25.7 - 32.2 pg [facility] MCHC 32.6 32.3 - 36.5 GM/DL [facility] RDW 13.0 11.6 - 14.4 % [facility] Platelets 257 150 - 450 K/CU MM [facility] MPV 10.0 9.4 - 12.4 fL [facility] nRBC 0 0 - 0 /100 WBC [facility] Specimen Blood Performing Organization Address City/[facility]/Zipcode Phone Number [address] [address] [facility] * BUN (01/06/2018 1:38 AM CDT) BUN 14 7 - 21 mg/dL [facility] Specimen Blood Performing Organization Address City/[facility]/Zipcode Phone Number [address] [address] [facility] * Creatinine (01/06/2018 1:38 AM CDT) Creatinine 0.83 0.57 - 1.25 mg/dL [facility] EGFR 93Comment: ESTIMATED GFR IS mL/min/1.73 sq m [facility] NOT ACCURATE CREATININE [facility] CLEARANCE IN PREDICTING GLOMERULAR FILTRATION RATE. ESTIMATED GFR IS NOT APPLICABLE FOR DIALYSIS PATIENTS. Specimen Blood Performing Organization Address City/[facility]/Zipcode Phone Number [address] [address] [facility] * Electrolytes (01/06/2018 1:38 AM CDT) Sodium 141 136 - 145 meq/L [facility] Potassium 3.8 3.5 - 5.1 meq/L [facility] Chloride 109 (H) 98 - 107 meq/L [facility] CO2 24 22 - 29 meq/L [facility] Specimen Blood Performing Organization Address City/State/[place] [address] [phone] [place] [address] * Basic metabolic panel (01/05/2018 7:16 PM CDT) Only the most recent of 2 results within the time period is included. Sodium 142 136 - 145 meq/L [facility] Potassium 3.8 3.5 - 5.1 meq/L [facility] Chloride 108 (H) 98 - 107 meq/L [facility] CO2 28 22 - 29 meq/L [facility] BUN 11 7 - 21 mg/dL [facility] Creatinine 0.80 0.57 - 1.25 mg/dL [facility] Glucose 122 (H) 70 - 105 mg/dL [facility] Calcium 8.6 8.4 - 10.2 mg/dL [facility] EGFR 97Comment: ESTIMATED GFR IS mL/min/1.73 sq m [facility] NOT ACCURATE CREATININE [facility] CLEARANCE IN PREDICTING GLOMERULAR FILTRATION RATE. ESTIMATED GFR IS NOT APPLICABLE FOR DIALYSIS PATIENTS. Specimen Blood Performing Organization Address City/[facility] [place] [address] [phone] [place] [address] * POC ACTIVATED CLOTTING TIME (01/05/2018 6:56 PM CDT) Only the most recent of 5 results within the time period is included. Activated Clotting Time 142Comment: TESTED AT [facility] sec [address] Specimen Blood Performing Organization Address City/State/Zipcode Phone Number [address] [address] [facility] * ECHOCARDIOGRAM REPORT - SCAN (01/05/2018 5:30 PM CDT) Narrative Performed At * Transesophageal echo (01/05/2018 12:26 PM CDT) Ejection Fraction [facility] ECHO HEARTLAB [facility] Specimen Narrative Performed At Transesophageal Echocardiography Report (CYNTHIA) [facility] ECHO HEARTLAB Demographics [facility] Patient Name Andrea HENDRICKSON of Study 01/05/2018 DELROY [id number] Male Visit Number [id number] Room Number Number Date of Birth2Referring Physician West Hassan Age67 year(s)Survey Research Professor Shay Bradley, [facility] Interpreting Sulaiman Wesley Physician The procedure was [...] Study 01/05/2018 DELROY Gender Male Visit Number [id number] Race Unknown Room Number Number Date of 1950 Referring Physician West Hassan Age 67 year(s) Survey Research Professor Shay Bradley RDCS Interpreting Sulaiman Wesley Physician The procedure [...] ml/m^2 LVESVI: 19 ml/m^2 Performing Organization Address City/State/[facility] Phone Number [facility] ECHO HEARTLAB [facility] * CBC with platelet count + automated diff (01/05/2018 11:07 AM CDT) WBC 10.8 (H) 3.5 - 10.5 K/L [facility] RBC 4.58 (L) 4.63 - 6.08 M/L [facility] Hemoglobin 13.7 13.7 - 17.5 GM/DL [facility] Hematocrit 41.6 40.1 - 51.0 % [facility] MCV 90.8 79.0 - 92.2 fL [facility] MCH 29.9 25.7 - 32.2 pg [facility] MCHC 32.9 32.3 - 36.5 GM/DL [facility] RDW 12.9 11.6 - 14.4 % [facility] Platelets 285 150 - 450 K/CU MM [facility] MPV 9.5 9.4 - 12.4 fL [facility] nRBC 0 0 - 0 /100 WBC [facility] % Neutros 77 % [facility] % Lymphs 14 % [facility] % Monos 8 % [facility] % Eos 1 % [facility] % Baso 0 % [facility] # Neutros 8.32 (H) 1.78 - 5.38 K/L [facility] # Lymphs 1.48 1.32 - 3.57 K/L [facility] # Monos 0.86 (H) 0.30 - 0.82 K/L [facility] # Eos 0.05 0.04 - 0.54 K/L [facility] # Baso 0.03 0.01 - 0.08 K/L [facility] Immature 1 0 - 1 % [facility] Granulocytes-Relative [facility] Specimen Blood Performing Organization Address City/State/Zipcode Phone Number [facility] [address] [place] [address] MEDICAL CENTER after 01/04/2018 Insurance Payer Benefit Subscriber ID Type Phone Address Plan / Group [employer] - MEDICARE MGD CARE [employer] xxxxxxxx [phone] [address] [place] [address] HMO POS PPO (Home) [place] [address] Advance Directives For more information, please contact: [facility] [address] [place], [place] [phone] Date Inactivated Comments Code Status Date Activated [...]
--- NOTE | 2019-01-05 13:39 | Operative Report ---
DATE OF PROCEDURE: 01/05/2019 SURGEON: Geovanni Gatica MD THEATRICAL SCENIC DESIGNER: Jorge Fitzgerald PA-C PREOPERATIVE DIAGNOSIS: Osteoarthritis, right knee. POSTOPERATIVE DIAGNOSIS: Osteoarthritis, right knee. PROCEDURE: Right total knee arthroplasty. INDICATIONS: The patient is a 68-year-old gentleman, who has end-stage arthritis of his right knee. The findings and options have been discussed. He would like to proceed with a right total knee replacement. He has been through a left total knee replacement and has had good outcome. I have reviewed the procedure, the implants, hospital stay and the recovery. He states he understands and wishes to proceed. PROCEDURE IN DETAIL: The patient was brought to the operating room and placed under general anesthetic. He received prophylactic antibiotics, a regional block and tranexamic acid in the holding area. His right lower extremity was prepped and draped in a sterile manner. A preoperative time-out was performed. The extremity was exsanguinated and a proximal tourniquet was inflated to 300 mmHg. An anterior approach with a medial parapatellar arthrotomy was performed. A large exostosis over the tibial tubercle was taken into account. There was a previous distal incision that needed to be incorporated into the incision. A medial parapatellar arthrotomy was performed. Clear synovial fluid was removed from the joint. Soft tissue releases were performed to bring the knee up into flexion with the patella everted. The skin was very thin over the tibial tubercle and slightly extending the incision towards the medial aspect. The anterior cruciate ligament was sacrificed. A Franklin and NephTunePatrol knee system was used throughout the case. Marginal osteophytes and meniscal remnants were removed. An extramedullary cutting guide was used to resect the proximal tibia. The tibial base plate was noted to be a size 7. The central fin punch was impacted and attention was directed towards the distal femur. An intramedullary cutting guide was then used to resect the distal femur. The cut was made in 6 degrees of valgus and with rotation referencing off a combination of landmarks including Whitesides line, the epicondylar axis and the posterior condyles. The femoral component was a size #8. Anterior and posterior cuts were made. A 9 mm ultracongruent tibial insert provided appropriate soft tissue balancing in full extension and 90 degrees of flexion. The patella was then resurfaced with a 35 mm x 9 mm patellar button. The thickness was checked before and after and was right around 23 mm. Patellar tracking was concentric. The trial implants were removed. A 100 mL premixed pericapsular ROXANNE injection was placed into the surrounding soft tissue. The knee was thoroughly irrigated with a shower tip pulsatile lavage. All bone cuts had been irrigated with a spray mixture of diluted polymyxin and vancomycin spray. The components were cemented into place using a single mix of Palacos cement preloaded with antibiotics. Care was taken to remove extravasated cement. The wound was then irrigated further while the cement cured. The arthrotomy was then carefully closed with interrupted #1 Ethibond. The knee was put through flexion and extension to ensure a secure closure. The skin was closed with subcuticular Vicryl and guadalupe. A sterile Aquacel bandage was applied. The patient was extubated and transported to the recovery room in stable condition. Blood loss was minimal. All needle and sponge counts were correct. Geovanni Gatica MD DR/HEATHER /[id number]
[2019-01-05] MEDS ORDERED: HYDROMORPHONE 2MG/ML 2 MG/ML ML ONE (15:10)
[2019-01-05] MEDS ORDERED: PROMETHAZINE HCL (IM) 25 MG/ML VIAL ONE (15:10)
[2019-01-05] MEDS: SODIUM CHLORIDE 0.9% 1000ML 1,000 ML IV SCH ×2 (15:25→22:13)
--- NOTE | 2019-01-05 15:50 | NUR ---
Received patient from PACU. Awake and alert, respiration even and unlabored without SOB. Spouse at bedside. Call light in reach.
[2019-01-05 15:53] VITALS: BP 171/73
--- NOTE | 2019-01-05 15:58 | NUR ---
DR KOWALSKI OFFICE PREARRANGED FOLLOWING DISCHARGE PLAN OF: HOME HEALTH WITH HOME CARE PROVIDERS CONFIRMED WITH DARIANA [phone] OFFICE [phone] DME 3 IN ONE COMMODE. AND CPM PROVIDED BY [employer]IA [email or web address] [phone] LAW AND PT CONFIRM HE HAS HIS OWN WALKER IN TRUNK OF CAR AND WILL BRING INSIDE FOR DISCHARGE. CONFIRMED ADDRESS OF HOME [address] [place] [address] HOME IS [phone] LAW'S NUMBER IS [phone] HIS CELL IS [phone] ALL ARE CONFIRMED AND COPIES OF CONTACT INFORMATION HAS BEEN PROVIDED TO PT FOR DISCHARGE.
[2019-01-05 16:11] VITALS: BP 171/73
[2019-01-05 16:59] VITALS: BP 171/73
[2019-01-05] MEDS: CELECOXIB 100 MG CAP PO SCH (17:26)
[2019-01-05] MEDS: ASPIRIN 325 MG TAB PO SCH (17:26)
[2019-01-05] MEDS: CEFAZOLIN SOD 1 GM/NS 50ML 50 ML IV SCH (17:26)
[2019-01-05] MEDS ORDERED: NON-FORMULARY MEDICATION (Tizanidine Hcl (Zanaflex) 4 MG) PO PRN (17:30)
[2019-01-05] MEDS ORDERED: TIZANIDINE HCL 4 MG TAB PO PRN (17:45)
[2019-01-05] MEDS: ACETAMINOPHEN 1000 MG/100 ML IV SCH ×2 (18:12→23:59)
[2019-01-05] MEDS ORDERED: LIDOCAINE HCL 2% LOCAL INJ 5 ML SDV VIAL INJ ONE (18:14)
[2019-01-05] MEDS ORDERED: PROPOFOL IV EMULSION 10 MG/ML 20 ML VIAL ONE (18:14)
[2019-01-05] MEDS ORDERED: SEVOFLURANE INHAL SOLN 250 ML PEN BTL ONE (18:14)
--- NOTE | 2019-01-05 18:15 | NUR ---
Patient had a large amount of emesis after dinner. Patient states he had a gastric bypass and some foods he does not tolerate well. No c/o nausea
[2019-01-05] MEDS ORDERED: ROPIVACAINE 0.5% 5 MG/ML 30 ML SDV ONE (18:20)
[2019-01-05] MEDS ORDERED: MIDAZOLAM HCL 2 MG/2 ML VIAL ONE (18:29)
--- NOTE | 2019-01-05 19:15 | NUR ---
Patient is awake, alert and able to make needs known. He was instructed to call for assistance as needed and verbalized understanding. No complaints voiced at this time. CPM placed 0-50, and tolerating. Bed in lowest position, locked, bed alarm on and call andre within reach
[2019-01-05 20:00] VITALS: BP 161/76
[2019-01-05] MEDS: METFORMIN HCL 500 MG TAB PO SCH (20:51)
[2019-01-05] MEDS: GLYBURIDE 5 MG TAB PO SCH (20:51)
[2019-01-05] MEDS: OXYCODONE HCL 10 MG TAB CR PO SCH (20:52)
[2019-01-05] MEDS ORDERED: NIFEDIPINE CR 30 MG TAB PO SCH (21:00)
[2019-01-05] MEDS ORDERED: METOPROLOL SUCCINATE 25 MG TAB XL PO SCH (21:00)
[2019-01-05] MEDS ORDERED: INSULIN GLARGINE 100 UNITS/ML VIAL SC SCH (21:00)
[2019-01-05] MEDS ORDERED: NIFEDIPINE 60 MG PO SCH (21:00)
[2019-01-05] MEDS ORDERED: FENOFIBRATE 145 MG TAB PO SCH (21:00)
[2019-01-05] MEDS ORDERED: ATORVASTATIN 20 MG TAB PO SCH (21:00)
[2019-01-05] MEDS ORDERED: ZOLPIDEM TARTRATE 5 MG TAB PO PRN (21:00)
[2019-01-05] MEDS ORDERED: ATORVASTATIN 40 MG TAB PO SCH (21:00)
[2019-01-05] MEDS ORDERED: AMIODARONE HCL 200 MG TAB PO SCH (21:00)
[2019-01-05 21:16] VITALS: BP 161/76
[2019-01-06] VITALS: BP 181/77
--- NOTE | 2019-01-06 00:40 | NUR ---
Patient resting in bed with eyes closed in NAD or c/o pain voiced. Call andre within reach.
[2019-01-06] MEDS: CEFAZOLIN SOD 1 GM/NS 50ML 50 ML IV SCH ×2 (01:43→09:00)
[2019-01-06 04:00] VITALS: BP 190/81
[2019-01-06 04:30] VITALS: BP 170/88
[2019-01-06 05:38] LABS: HEMOGLOBIN 12.3 g/dL (14.0-18.0)
[2019-01-06] MEDS: ACETAMINOPHEN 1000 MG/100 ML IV SCH ×2 (06:04→12:00)
--- NOTE | 2019-01-06 06:29 | Consultation ---
DATE OF CONSULTATION: REASON FOR CONSULTATION: Postop medical management. HISTORY OF PRESENT ILLNESS: The patient is a 68-year-old gentleman, status post right knee arthroplasty for end-stage osteoarthritis. He is doing well postoperatively and states minimal pain in the right knee. Denies fever, chills, nausea, vomiting, headache, shortness of breath, or dizziness on review of systems. PAST MEDICAL HISTORY: Significant for diabetes, hypertension, and hyperlipidemia. MEDICATIONS: See MAR. ALLERGIES: NONE. SOCIAL HISTORY: , retired, nonsmoker. FAMILY HISTORY: COPD, diabetes, heart disease, arthritis. PHYSICAL EXAMINATION: VITAL SIGNS: Temperature 97.6, pulse 53, blood pressure 181/77, and sats 97% on room air. GENERAL: He is in no apparent distress, lying in bed. LUNGS: Clear to auscultation bilaterally. NECK: Supple. CARDIOVASCULAR: Regular rate and rhythm. ABDOMEN: Good bowel sounds. Soft and nontender. EXTREMITIES: No clubbing or cyanosis. NEUROLOGIC: Nonfocal. ASSESSMENT AND PLAN: 1. Right knee pain. Continue with pain control and physical therapy. 2. Anemia. Check CBC. 3. Diabetes. Continue with current care monitoring. 4. Hypertension. Continue with current care monitoring and restart his home medicines. 5. Hyperlipidemia. Continue with his cholesterol medicine. 6. Bradycardia. Continue to monitor since he is asymptomatic. Please see hospital chart for full details. MD SHAHID Barrientos/HEATHER /[id number]
--- NOTE | 2019-01-06 07:22 | NUR ---
RECEIVED PATIENT AWAKE RESTING IN BED. CPM IN PLACE. BED LOW, WHEELS LOCKED, SIDE RAILS X2. CALL LIGHT IN REACH WILL CONTINUE TO MONITOR PATIENT.
[2019-01-06] MEDS: SODIUM CHLORIDE 0.9% 1000ML 1,000 ML IV SCH (07:58)
[2019-01-06 08:01] VITALS: BP 176/82
--- NOTE | 2019-01-06 08:15 | NUR ---
PATIENT OFF OF CPM AND WORKING WITH PT AT THIS TIME.
[2019-01-06] MEDS: CELECOXIB 100 MG CAP PO SCH (09:00)
[2019-01-06] MEDS ORDERED: HYDROCHLOROTHIAZIDE 25 MG TAB PO SCH (09:00)
[2019-01-06] MEDS ORDERED: SITAGLIPTIN 100 MG TAB PO SCH (09:00)
[2019-01-06] MEDS: METFORMIN HCL 500 MG TAB PO SCH (09:00)
[2019-01-06] MEDS: OXYCODONE HCL 10 MG TAB CR PO SCH (09:00)
[2019-01-06] MEDS: ASPIRIN 325 MG TAB PO SCH (09:00)
[2019-01-06] MEDS: GLYBURIDE 5 MG TAB PO SCH (09:00)
[2019-01-06] MEDS ORDERED: LOSARTAN POTASSIUM 100 MG TAB PO SCH (09:00)
[2019-01-06] MEDS ORDERED: ONDANSETRON HCL 4 MG ORAL DISINTEGRATING TAB PO PRN (09:15)
[2019-01-06 09:23] VITALS: BP 176/82
[2019-01-06 11:53] VITALS: BP 137/61
[2019-01-06] MEDS ORDERED: ACETAMINOPHEN 1000 MG/100 ML IV PRN (12:15)
--- NOTE | 2019-01-06 12:15 | NUR ---
REMOVED PATIENTS IV. CATHETER TIP INTACT AND PRESSURE DRESSING APPLIED.
--- NOTE | 2019-01-06 12:23 | NUR ---
PATIENT DISCHARGED FROM FACILITY. PATIENT GATHERED ALL PERSONAL BELONGINGS, DISCHARGE INSTRUCTIONS, AND FOLLOW UP INFORMATION. PATIENT LEFT UNIT IN WHEELCHAIR AND WENT HOME VIA PRIVATE AUTO. NO SIGNS OF DISTRESS WHEN LEAVING FACILITY.
[2019-01-06] MEDS ORDERED: CELECOXIB 200 MG CAP PO SCH (17:00)
== END 2019-01-06 12:23 | disposition home health service (06) ==
LOC: OR 08:07 → PACU V 12:16 → MED/SURG 15:40
PROVIDERS: ADMIT Specialist; ATTEND Specialist
DX: M17.11 Unilateral primary osteoarthritis, right knee (principal); D64.9 Anemia, unspecified; E11.9 Type 2 diabetes mellitus without complications; E78.5 Hyperlipidemia, unspecified; R00.1 Bradycardia, unspecified; I10 Essential (primary) hypertension; M16.12 Unilateral primary osteoarthritis, left hip; Z96.642 Presence of left artificial hip joint
CPT/HCPCS: 27447; 36415 ×3; 71046; 73560; 80048; 82948 ×2; 85014; 85018; 85025; 86850; 86900; 86920; 97116; 97162; 97530 ×2; C1713 ×3; G0378 ×2; J0131 ×2; J0171; J0690 ×2; J1100; J1170 ×2; J1815; J1885 ×2; J2001; J2250; J2550; J2704; J2795; J3010; J3370; J7030; J7040

== ENCOUNTER 2019-01-06 22:43 | Emergency (ER) | payer MEDICARE ==
[~2019-01-06] VITALS: Ht 188 cm; Wt 124.7 kg
[~2019-01-06 22:43] MED LIST changes: -ROPIVACAINE 246.25 MG, EPINEPHRINE HCL 1:1000 1ML 0.5 MG, CLONIDINE HCL 0.08 MG, KETORO... INJ ONE
--- OUTSIDE RECORDS SUMMARY | 2019-01-06 22:48 | XMS REPORT | Clinical Summary ---
Author Author [facility] Organization [facility] Address Unknown Phone Unavailable Care Team Providers Care Veneer Stacker Name Role Phone Wander Correa DO PCP [...] Emergency General Internal Medicine - 04/07/2018 after 01/05/2018 Family History Medical History Relation Name Comments [...] Comments Vital Sign 160/57 04/07/2018 1:45 PM INSURANCE HEALTHCARE REPRESENTATIVE Blood Pressure 59 04/07/2018 1:45 PM INSURANCE HEALTHCARE REPRESENTATIVE Pulse 37.1 C (98.7 F) 04/07/2018 10:52 AM INSURANCE HEALTHCARE REPRESENTATIVE Temperature 20 04/07/2018 10:52 AM INSURANCE HEALTHCARE REPRESENTATIVE Respiratory Rate 96% 04/07/2018 10:52 AM INSURANCE HEALTHCARE REPRESENTATIVE Oxygen Saturation - - Inhaled Oxygen Concentration 126 kg (278 lb) 04/06/2018 12:25 PM INSURANCE HEALTHCARE REPRESENTATIVE Weight 188 cm (6' 2") 04/06/2018 12:25 PM INSURANCE HEALTHCARE REPRESENTATIVE Height 35.69 04/06/2018 12:25 PM INSURANCE HEALTHCARE REPRESENTATIVE Body Mass Index Plan of Treatment Health Maintenance Due Date Last Done Comments DIABETIC RETINAL EYE EXAM 1952 DIABETIC FOOT EXAM 1962 COLONOSCOPY SCREENING 2002 SHINGLES VACCINES (#1) 2002 65+ PNEUMOCOCCAL VACCINE 2017 (1 of 2 - PCV13) URINE MICROALBUMIN 10/04/2017 10/04/2016, 11/15/2015 INFLUENZA VACCINE 12/10/2018 02/09/2017 Procedures Comments Procedure Name Priority Date/Time Associated Diagnosis POC GLUCOSE Routine 04/07/2018 11:33 AM INSURANCE HEALTHCARE REPRESENTATIVE POC GLUCOSE Routine 04/07/2018 5:52 AM INSURANCE HEALTHCARE REPRESENTATIVE TROPONIN Timed 04/06/2018 9:00 PM INSURANCE HEALTHCARE REPRESENTATIVE POC GLUCOSE Routine 04/06/2018 8:15 PM INSURANCE HEALTHCARE REPRESENTATIVE TROPONIN Timed 04/06/2018 5:24 PM INSURANCE HEALTHCARE REPRESENTATIVE POC GLUCOSE Routine 04/06/2018 5:23 PM INSURANCE HEALTHCARE REPRESENTATIVE POC GLUCOSE Routine 04/06/2018 3:08 PM INSURANCE HEALTHCARE REPRESENTATIVE URINALYSIS SCREEN AND STAT 04/06/2018 MICROSCOPY, WITH REFLEX 2:50 PM INSURANCE HEALTHCARE REPRESENTATIVE TO CULTURE URINE CULTURE STAT 04/06/2018 2:50 PM INSURANCE HEALTHCARE REPRESENTATIVE ECG 12-LEAD STAT 04/06/2018 1:48 PM INSURANCE HEALTHCARE REPRESENTATIVE ECG ED PRELIMINARY Routine 04/06/2018 INTERPRETATION 1:03 PM INSURANCE HEALTHCARE REPRESENTATIVE XR CHEST 2 VW STAT 04/06/2018 12:50 PM INSURANCE HEALTHCARE REPRESENTATIVE HEMOGLOBIN A1C Routine 04/06/2018 12:32 PM INSURANCE HEALTHCARE REPRESENTATIVE LIPID PANEL Routine 04/06/2018 12:32 PM INSURANCE HEALTHCARE REPRESENTATIVE ESTIMATED GFR STAT 04/06/2018 12:30 PM INSURANCE HEALTHCARE REPRESENTATIVE B NATRIURETIC PEPTIDE STAT 04/06/2018 12:30 PM INSURANCE HEALTHCARE REPRESENTATIVE PARTIAL THROMBOPLASTIN STAT 04/06/2018 TIME (PTT) 12:30 PM INSURANCE HEALTHCARE REPRESENTATIVE PROTHROMBIN TIME WITH INR STAT 04/06/2018 12:30 PM INSURANCE HEALTHCARE REPRESENTATIVE TROPONIN STAT 04/06/2018 12:30 PM INSURANCE HEALTHCARE REPRESENTATIVE CREATINE KINASE, TOTAL STAT 04/06/2018 (CPK) 12:30 PM INSURANCE HEALTHCARE REPRESENTATIVE COMPREHENSIVE METABOLIC STAT 04/06/2018 PANEL 12:30 PM INSURANCE HEALTHCARE REPRESENTATIVE HC COMPLETE BLD COUNT STAT 04/06/2018 W/AUTO DIFF 12:30 PM INSURANCE HEALTHCARE REPRESENTATIVE ECG 12-LEAD STAT 04/06/2018 12:18 PM INSURANCE HEALTHCARE REPRESENTATIVE ECG 12-LEAD STAT 04/06/2018 12:15 PM INSURANCE HEALTHCARE REPRESENTATIVE after 01/05/2018 Results * POC glucose (04/07/2018 11:33 AM INSURANCE HEALTHCARE REPRESENTATIVE) Only the most recent of 5 results within the time period is included. POC glucose 137 (H) 65 - 99 mg/dL [place] Comment: [facility] Meter ID: [id number] [facility] Clinical Support Manager: Vinayakrey Hernandez Specimen Performing Organization Address [facility] Phone Number [address] [place] [address] PATHOLOGY AND GENOMIC MEDICINE [address] * Troponin (04/06/2018 9:00 PM INSURANCE HEALTHCARE REPRESENTATIVE) Only the most recent of 3 results within the time period is included. [facility] Troponin <0.300 0.000 - 0.300 ng/mL [place] Comment: [facility] 0.30 - 1.49 [facility] ng/mlMay indicate increased risk of acute coronary syndrome. >=1.5 ng/ml Consistent with acute myocardial infarction. The diagnostic value of a single normal or non-diagnostic result is questionable.Serial samples at 2-6 hour intervals are required to rule out acute myocardial injury. Specimen Plasma specimen Performing Organization Address [facility] Phone Number [address] [place] [address] PATHOLOGY AND GENOMIC MEDICINE [address] * Urinalysis screen and microscopy, with reflex to culture (04/06/2018 2:50 PM INSURANCE HEALTHCARE REPRESENTATIVE) [facility] Specimen site Clean catch [facility] Color, UA Yellow [facility] Appearance, UA Clear [facility] Specific 1.026 1.001 - 1.035 [place] gravity, UA [facility] pH, UA 5.0 5.0 - 8.5 [facility] Protein, UA Negative Negative [facility] Glucose, UA Negative Negative [facility] Ketones, UA Negative Negative [facility] Bilirubin, UA Negative Negative [facility] Blood, UA Negative Negative [facility] Nitrite, UA Negative Negative [facility] Urobilinogen, Negative <2.0 [facility] Leukocyte Negative Negative [place] esterase, UA [facility] Epithelial Few /HPF [place] cells, UA [facility] Round Few 0 - 1 /HPF [place] epithelial [facility] cells, UA [facility] WBC, UA 0-5 0 - 1 /HPF [facility] RBC, UA 0-5 0 - 5 /HPF [facility] Bacteria, UA None seen None seen [facility] Yeast, UA None seen [facility] Yeast with None seen [place] pseudohyphae, [facility] Specimen Urine Performing Organization Address City/[facility] Phone Number [address] [place] [address] PATHOLOGY AND GENOMIC MEDICINE [address] * Urine culture (04/06/2018 2:50 PM INSURANCE HEALTHCARE REPRESENTATIVE) Pathologist [facility] Urine culture SEE COMMENTComment: [place] Bacteriuria screen negative. [facility] Specimen Urine Performing Organization Address [facility] Phone Number [address] [place] [address] PATHOLOGY AND GENOMIC MEDICINE [address] * ECG 12 lead (04/06/2018 1:48 PM INSURANCE HEALTHCARE REPRESENTATIVE) Only the most recent of 3 results within the time period is included. Ventricular 51 [facility] rate Atrial rate 51 [facility] [place] interval 192 [facility] QRSD interval 106 [...] Specimen Narrative Performed At Performing Organization Address City/[facility] Phone Number [facility] MUSE [address] [place] [address] * ECG ED Preliminary Interpretation - Not an Order (04/06/2018 1:03 PM INSURANCE HEALTHCARE REPRESENTATIVE) Narrative Performed At Jovani Leigh Jr., MD 04/07/20188:40 AM ECG ED Preliminary Interpretation - Not an Order Performed by: Jovani Leigh Jr., MD Authorized by: Jovani Leigh Jr., MD ECG reviewed by ED Physician in the absence of a roller hand: yes (read at 1348) Previous ECG: Previous ECG:Unavailable Interpretation: Interpretation: normal Rate: ECG rate:51 ECG rate assessment: bradycardic Rhythm: Rhythm: sinus bradycardia Ectopy: Ectopy: none QRS: QRS axis:Normal (106) Conduction: Conduction: normal ST segments: ST segments:Normal T waves: T waves: normal Q waves: Q waves:V1 and V2 * XR Chest 2 Vw (04/06/2018 12:50 PM INSURANCE HEALTHCARE REPRESENTATIVE) Specimen Narrative Performed At EXAMINATION:XR CHEST 2 [...] 1. There is no acute cardiopulmonary disease. [id number] Procedure Note Interface, Radiology Results Incoming - 04/06/2018 1:05 PM INSURANCE HEALTHCARE REPRESENTATIVE EXAMINATION: XR CHEST 2 VW CLINICAL HISTORY: [...] 1. There is no acute cardiopulmonary disease. [id number] Performing Organization Address City/State/Zipcode Phone Number [facility] [address] [place] [address] * Hemoglobin A1c (04/06/2018 12:32 PM INSURANCE HEALTHCARE REPRESENTATIVE) Hemoglobin A1C 7.3 (H) 4.0 - 6.0 % [place] Comment: [facility] Less than 6% - Goal of therapy for Type II Diabetes Less than 7%-Goal of therapy for Type I Diabetes Less than 8%-Accepta ble control for Type I or Type II Diabetes Greater than 8%-Unacceptabl e control; action indicated. ([id number]) Specimen Blood Performing Organization Address City/[facility] Phone Number [facility] [place] [place] [address] [place] [address] PATHOLOGY AND GENOMIC MEDICINE [address] [place] [address] [facility] * Lipid panel (04/06/2018 12:32 PM INSURANCE HEALTHCARE REPRESENTATIVE) Cholesterol 152 <200 mg/dL [facility] Triglycerides 200 (H) <150 mg/dL [facility] HDL cholesterol 43 >40 mg/dL [facility] LDL cholesterol 96Comment: Result obtained by <100 mg/dL [place] direct LDL measurement [facility] Lipid panel [facility] interpretation Comment: [facility] Total Cholesterol [facility] (mg/dL) <200 Desirable 200-239Borderline -high >=240High Triglycerides [...] mg/dL) Specimen Plasma specimen Performing Organization Address [facility]/Zipcode Phone Number [address] [place] [address] PATHOLOGY AND GENOMIC MEDICINE [address] [place] [address] [facility] * Estimated GFR (04/06/2018 12:30 PM INSURANCE HEALTHCARE REPRESENTATIVE) [facility] Estimated GFR >=90 mL/min/1.73 m2 [place] Comment: [facility] rpretation G1 >=90 Normal or high G2 60-89Mildly decreased O2p63-34 Mildly to moderately decreased G3n25-44 Moderately to severely decreased G4 15-29Severely decreased G5 <15Kidney failure The eGFR was calculated using the Chronic Kidney Disease Epidemiology Collaboration (CKD-EPI) equation. Interpretation is based on recommendations of the National Kidney Foundation-Kidney Disease Outcomes Quality Initiative (NKF-KDOQI) published in 2014. Specimen Plasma specimen Performing Organization Address [facility] Phone Number [address] AND [address] * Partial thromboplastin time, activated (04/06/2018 12:30 PM INSURANCE HEALTHCARE REPRESENTATIVE) [facility] PTT 28.9 23.0 - 36.0 sec [place] Comment: DORIS LEACH PTT therapeutic range for [facility] unfractionated heparin is 61.0-112.0 seconds which corresponds to Anti-Xa 0.3-0.7 U/ml. Specimen Blood Performing Organization Address [facility] Phone Number [address] AND [address] * Prothrombin time with INR (04/06/2018 12:30 PM INSURANCE HEALTHCARE REPRESENTATIVE) [facility] Prothrombin 13.8 11.5 - 14.5 sec [facility] INR 1.1 [place] Comment: DORIS MEDINA The International Normalized [facility] Ratio (INR) is a therapeutic monitoring tool for patients who are stable on oral anticoagulant therapy. An INR of 2.0-3.0 is suggested for deep vein thrombosis/pulmonary embolism. Specimen Blood Performing Organization Address [facility] Phone Number [address] [place] [address] PATHOLOGY AND [address] * CBC with platelet and differential (04/06/2018 12:30 PM INSURANCE HEALTHCARE REPRESENTATIVE) [facility] WBC 8.51 4.50 - 11.00 k/uL [facility] RBC 4.47 4.40 - 6.00 m/uL [facility] HGB 13.0 (L) 14.0 - 18.0 g/dL [facility] HCT 40.4 (L) 41.0 - 51.0 % [facility] MCV 90.4 82.0 - 100.[address] [facility] MCH 29.1 27.0 - 34.[address] [facility] MCHC 32.2 31.0 - 37.0 g/dL [facility] RDW - SD 44.6 37.0 - 55.[address] [facility] MPV 9.7 8.8 - 13.[address] [facility] Platelet count 248 150 - 400 k/uL [facility] Nucleated RBC 0.00 /[address] [facility] Neutrophils 74.7 (H) 39.0 - 69.0 % [facility] Lymphocytes 14.3 (L) 25.0 - 45.0 % [facility] Monocytes 9.0 0.0 - 10.0 % [facility] Eosinophils 1.2 0.0 - 5.0 % [facility] Basophils 0.4 0.0 - 1.0 % [facility] Specimen Blood Performing Organization Address City/[facility] Phone Number [address] [place] [address] PATHOLOGY AND GENOMIC MEDICINE [address] * B natriuretic peptide (04/06/2018 12:30 PM INSURANCE HEALTHCARE REPRESENTATIVE) [facility] BNP 44 0 - 100 pg/mL [facility] Specimen Blood Performing Organization Address [facility] Phone Number [address] [place] [address] PATHOLOGY AND GENOMIC MEDICINE [address] * Creatine kinase, total (CPK) (04/06/2018 12:30 PM INSURANCE HEALTHCARE REPRESENTATIVE) Pathologist [facility] Creatine kinase 237 39 - 308 U/L [facility] Specimen Plasma specimen Performing Organization Address City/State/Zipcode Phone Number [facility] [address] [place] [address] PATHOLOGY AND GENOMIC MEDICINE [facility] [address] [place] [address] * Comprehensive metabolic panel (04/06/2018 12:30 PM INSURANCE HEALTHCARE REPRESENTATIVE) Pathologist [facility] Sodium 141 135 - 148 mEq/L [facility] Potassium 4.3 3.5 - 5.0 mEq/L [facility] Chloride 103 98 - 112 mEq/L [facility] CO2 27 24 - 31 mEq/L [facility] Anion gap 11@ANIO 7 - 15 mEq/L [facility] BUN 16 8 - 23 mg/dL [facility] Creatinine 0.80 0.70 - 1.20 mg/dL [facility] Glucose 181 (H) 65 - 99 mg/dL [facility] Calcium 9.7 8.8 - 10.2 mg/dL [facility] Protein 7.1 6.3 - 8.3 g/dL [place] Comment: [facility] 4.6-7.0 g/dL 1 week 4.4-7.6 g/dL 7 months-1year 5.1-7.3 g/dL 1-2 years5.6-7 .5 g/dL >3 years6.0-8 .0 g/dL 18-150 6.3-8.3 g/dL Albumin 4.5 3.5 - 5.0 g/dL [facility] A/G ratio 1.7 0.7 - 3.8 [facility] Alkaline 102 40 - 129 U/L [place] phosphatase [facility] AST 20 10 - 50 U/L [facility] ALT 24 5 - 50 U/L [facility] Total bilirubin 0.3 0.0 - 1.2 mg/dL [facility] Specimen Plasma specimen Performing Organization Address City/State/Zipcode [place] [address] [place] [address] PATHOLOGY AND GENOMIC MEDICINE [facility] [address] [place] [address] [facility] after 01/05/2018 Insurance Type Payer Benefit Subscriber ID Effective Phone Address Plan / Dates Group HMO AETNA MEDICARE AETNA xxxxxxxx 2017- MEDICARE Present HMO/PPO [facility] (Home) [place] [address] Advance Directives For more information, please contact: [phone] Patient Finance Admin Explanation Type Date Recorded Advance Directives, 04/06/2018 2:08 PM Living Will and Medical Power of House Registry Rn
--- OUTSIDE RECORDS SUMMARY | 2019-01-06 22:48 | XMS REPORT | Clinical Summary ---
Author Author CHACE [employer] Organization [facility] [email or web address] Address Unknown Phone Unavailable Care Team Providers Care Weed Inspector Name Role Phone Wander Correa PCP Allergies [...] Dodson MD 01/05/2018 Orders Only Cardiology after 01/05/2018 Family History Medical History Relation [...] ms QTC Calculatio n(Bazett) 472 ms R [place] -54 degrees T [place] 94 degrees Atrial flutter with variable A-V [...] AF (paroxysmal atrial 9:29 AM CDT fibrillation) (FORMERLY [facility]) CONT WAVE PULSED DOPPLER Routine 01/05/2018 AF (paroxysmal atrial 9:29 AM CDT fibrillation) ([facility]) after 01/05/2018 Results * RHYTHM STRIP - SCAN (08/27/2018 12:31 PM CDT) Only the most recent of 3 results within the time period is included. Narrative Performed At * CARDIAC CATH REPORT - SCAN (01/07/2018 11:30 AM CDT) Narrative Performed At * POC-Glucose meter (01/06/2018 7:48 AM CDT) POC-Glucose Meter 226 (H)Comment: TESTED AT 70 - 110 mg/dL [facility] [address] [facility] [address] Specimen Blood Performing Organization Address City/State/Zipcode Phone Number [place] [phone] [place] [address] [facility] * EKG 12 lead (01/06/2018 4:54 AM CDT) Only the most recent of 2 results within the time period is included. Specimen Narrative Performed At Ventricular Rate 73 BPM GE MUSE Atrial Rate 73 BPM P-R Interval 210 ms QRS Duration 110 ms Q-T Interval 424 ms QTC Calculation(Bazett) 467 ms P [place] 65 degrees R [place] 226 degrees T [place] 32 degrees Sinus rhythm with 1st degree A-V block Anterolateral infarct (cited on or before 25-APR-2017) Abnormal ECG When compared with ECG of 05-JAN-2018 10:34, Sinus rhythm has replaced Atrial flutter Questionable change in QRS axis T wave inversion no longer evident in Lateral leads Confirmed by MD WESLEY JOSEPH P ([id number]) on 01/06/2018 6:17:13 AM Procedure Note Interface, External Ris In - 01/06/2018 6:17 AM CDT Ventricular Rate 73 BPM Atrial Rate 73 BPM P-R Interval 210 ms QRS Duration 110 ms Q-T Interval 424 ms QTC Calculation(Bazett) 467 ms P [place] 65 degrees R [place] 226 degrees T [place] 32 degrees Sinus rhythm with 1st degree A-V block Anterolateral infarct (cited on or before 25-APR-2017) Abnormal ECG When compared with ECG of 05-JAN-2018 10:34, Sinus rhythm has replaced Atrial flutter Questionable change in QRS axis T wave inversion no longer evident in Lateral leads Confirmed by MD WESLEY JOSEPH P ([id number]) on 01/06/2018 6:17:13 AM Performing Organization Address City/[facility]/Zipcode Phone Number GE MUSE * aPTT (01/06/2018 1:38 AM CDT) Only the most recent of 2 results within the time period is included. PTT 26.4 22.5 - 36.0 seconds [facility] Specimen Blood Narrative Performed At 6 hours after starting heparin infusion and as indicated per sliding scale [facility] Performing Organization Address City/[facility] Phone Number [facility] [address] [place] [address] MED[facility]ENTER * CBC (Hemogram only) (01/06/2018 1:38 AM CDT) Only the most recent of 2 results within the time period is included. WBC 12.1 (H) 3.5 - 10.5 K/L [facility] RBC 3.95 (L) 4.63 - 6.08 M/L [facility] Hemoglobin 12.0 (L) 13.7 - 17.5 GM/DL [facility] Hematocrit 36.8 (L) 40.1 - 51.0 % [facility] MCV 93.2 (H) 79.0 - 92.2 fL [facility] MCH 30.4 25.7 - 32.2 pg [facility] MCHC 32.6 32.3 - 36.5 GM/DL [facility] RDW 13.0 11.6 - 14.4 % [facility] Platelets 257 150 - 450 K/CU MM [facility] MPV 10.0 9.4 - 12.4 fL [facility] nRBC 0 0 - 0 /100 WBC [facility] Specimen Blood Performing Organization Address City/[facility]/Zipcode Phone Number [address] [address] [facility] * BUN (01/06/2018 1:38 AM CDT) BUN 14 7 - 21 mg/dL [facility] Specimen Blood Performing Organization Address City/[facility]/Zipcode Phone Number [address] [address] [facility] * Creatinine (01/06/2018 1:38 AM CDT) Creatinine 0.83 0.57 - 1.25 mg/dL [facility] EGFR 93Comment: ESTIMATED GFR IS mL/min/1.[address] [facility] NOT ACCURATE CREATININE [facility] CLEARANCE IN PREDICTING GLOMERULAR FILTRATION RATE. ESTIMATED GFR IS NOT APPLICABLE FOR DIALYSIS PATIENTS. Specimen Blood Performing Organization Address City/[facility]/Zipcode Phone Number [address] [address] [facility] * Electrolytes (01/06/2018 1:38 AM CDT) Sodium 141 136 - 145 meq/L [facility] Potassium 3.8 3.5 - 5.1 meq/L [facility] Chloride 109 (H) 98 - 107 meq/L [facility] CO2 24 22 - 29 meq/L [facility] Specimen Blood Performing Organization Address City/State/[place] [address] [phone] [place] [address] * Basic metabolic panel (01/05/2018 7:16 PM CDT) Only the most recent of 2 results within the time period is included. Sodium 142 136 - 145 meq/L [facility] Potassium 3.8 3.5 - 5.1 meq/L [facility] Chloride 108 (H) 98 - 107 meq/L [facility] CO2 28 22 - 29 meq/L [facility] BUN 11 7 - 21 mg/dL [facility] Creatinine 0.80 0.57 - 1.25 mg/dL [facility] Glucose 122 (H) 70 - 105 mg/dL [facility] Calcium 8.6 8.4 - 10.2 mg/dL [facility] EGFR 97Comment: ESTIMATED GFR IS mL/min/1.[address] [facility] NOT ACCURATE CREATININE [facility] CLEARANCE IN PREDICTING GLOMERULAR FILTRATION RATE. ESTIMATED GFR IS NOT APPLICABLE FOR DIALYSIS PATIENTS. Specimen Blood Performing Organization Address City/[facility] [place] [address] [phone] [place] [address] * POC ACTIVATED CLOTTING TIME (01/05/2018 6:56 PM CDT) Only the most recent of 5 results within the time period is included. Activated Clotting Time 142Comment: TESTED AT [facility] [address] Specimen Blood Performing Organization Address City/State/Zipcode Phone Number [address] [address] [facility] * ECHOCARDIOGRAM REPORT - SCAN (01/05/2018 5:30 PM CDT) Narrative Performed At * Transesophageal echo (01/05/2018 12:26 PM CDT) Ejection Fraction [facility] ECHO HEARTLAB [facility] Specimen Narrative Performed At Transesophageal Echocardiography Report (CYNTHIA) [facility] ECHO HEARTLAB Demographics [facility] Patient Name Andrea HENDRICKSON of Study 01/05/2018 [place] [id number] Male Visit Number [id number] Room Number Number Date of Birth2Referring Physician [place] Age67 year(s)Lpn Or Medical Assistant Shay Bradley, [facility] Interpreting Sulaiman Wesley Physician The [...] Study 01/05/2018 [place] Gender Male Visit Number [id number] Race Unknown Room Number Number Date of 1950 Referring Physician West Hassan Age 67 year(s) Lpn Or Medical Assistant Shay Bradley RDCS Interpreting Sulaiman Wesley Physician [...] ml/m^2 LVESVI: 19 ml/m^2 Performing Organization Address City/State/[facility] Cent[facility]ode Phone Number [facility] ECHO HEART[facility] * CBC with platelet count + automated diff (01/05/2018 11:07 AM CDT) WBC 10.8 (H) 3.5 - 10.5 K/L [facility] RBC 4.58 (L) 4.63 - 6.08 M/L [facility] Hemoglobin 13.7 13.7 - 17.5 GM/DL [facility] Hematocrit 41.6 40.1 - 51.0 % [facility] MCV 90.8 79.0 - 92.2 fL [facility] MCH 29.9 25.7 - 32.2 pg [facility] MCHC 32.9 32.3 - 36.5 GM/DL [facility] RDW 12.9 11.6 - 14.4 % [facility] Platelets 285 150 - 450 K/CU MM [facility] MPV 9.5 9.4 - 12.4 fL [facility] nRBC 0 0 - 0 /100 WBC [facility] % Neutros 77 % [facility] % Lymphs 14 % [facility] % Monos 8 % [facility] % Eos 1 % [facility] % Baso 0 % [facility] # Neutros 8.32 (H) 1.78 - 5.38 K/L [facility] # Lymphs 1.48 1.32 - 3.57 K/L [facility] # Monos 0.86 (H) 0.30 - 0.82 K/L [facility] # Eos 0.05 0.04 - 0.54 K/L [facility] # Baso 0.03 0.01 - 0.08 K/L [facility] Immature 1 0 - 1 % [facility] Granulocytes-Relative [facility] Specimen Blood Performing Organization Address City/State/Zipcode Phone Number [facility] [address] [place] [address] MEDICAL CENTER after 01/05/2018 Insurance Payer Benefit Subscriber ID Type Phone Address Plan / Group [employer] - MEDICARE MGD CARE [employer] xxxxxxxx [phone] [address] [place] [address] HMO POS PPO (Home) [place] [address] Advance Directives For more information, please contact: [facility] [address] [place], [place] [phone] Date Inactivated Comments Code Status Date Activated [...]
[2019-01-06] MEDS ORDERED: HYDROMORPHONE 1MG/1ML INJ IM STA (23:01)
--- NOTE | 2019-01-06 23:01 | NUR ---
DIRECTOR [employer]ITY SYSTEMS NOTED OF DOPPLER Addendum: 01/06/19 at 2302 by KENNEY DIRECTOR [employer] NOTIFIED OF VENOUS DOPPLER ORDER
--- NOTE | 2019-01-07 | Diagnostic Imaging Report ---
Exam: Right knee 3 views History: Pain status post surgery Comparison: 01/05/2019 Findings: See impression Impression: Redemonstration of postsurgical changes related to total right knee arthroplasty with intact surgical hardware. Expected subcutaneous gas and skin guadalupe. No periprosthetic displaced fracture. Signed by: Dr. Geovanni Oliveira M.D. on 01/06/2019 11:57 PM
[2019-01-07] MEDS ORDERED: FENTANYL 50 MCG/HR PATCH TOP SCH (00:45)
== END 2019-01-07 00:51 | disposition home or self-care (01) ==
LOC: ER 22:43
DX: M25.561 Pain in right knee (principal); Z96.651 Presence of right artificial knee joint
CPT/HCPCS: 73562; 93971; 99284; J1170

== ENCOUNTER → 2022-06-25 | Day surgery (SDC) | payer MEDICARE ==
[~2022-06-25] MED LIST changes: +BUPIVACAINE HCL 0.5% 10ML MPF VIAL INJ ONE; +FENTANYL CITRATE/PF 100MCG/2 ML INJ ONE; +HYDROCODON-ACE1 EA11 PO; +IOPAMIDOL 200 MG/ML 20 ML VIAL IT ONE; +KETAMINE HCL INJ 50 MG/ML 10 ML VIAL ONE; +LEVOTHYROXINE75 MCG PO; +LIDOCAINE HCL 1% LOCAL INJ 20 ML VIAL ONE; +LIDOCAINE HCL 2% LOCAL INJ 5 ML SDV VIAL INJ ONE; +MIDAZOLAM HCL 2 MG/2 ML VIAL ONE; +OZEMPIC0.25 MG/0. SC; +POVIDONE IODINE 0.05% 0.05 % ML PO ONE; +PROPOFOL IV EMULSION 10 MG/ML 20 ML VIAL ONE; +TRIAMCINOLONE ACET 40 MG/ML VIAL ONE; +V-GO SC
[2022-06-25 11:15] VITALS: BP 135/80
== END | disposition home or self-care (01) ==
LOC: OR 07:44
PROVIDERS: ATTEND Specialist
DX: M16.11 Unilateral primary osteoarthritis, right hip (principal); E11.9 Type 2 diabetes mellitus without complications; I25.10 Atherosclerotic heart disease of native coronary artery without angina pectoris; I48.91 Unspecified atrial fibrillation; E78.5 Hyperlipidemia, unspecified; I10 Essential (primary) hypertension; Z01.810 Encounter for preprocedural cardiovascular examination; Z79.02 Long term (current) use of antithrombotics/antiplatelets; Z79.82 Long term (current) use of aspirin; Z79.4 Long term (current) use of insulin; Z79.84 Long term (current) use of oral hypoglycemic drugs; Z68.36 Body mass index [BMI] 36.0-36.9, adult
CPT/HCPCS: 20605; 36415; 77002; 82948; 93005; J2001; J2250; J2704; J3010; J3301; Q9967

== ENCOUNTER 2022-08-12 05:59 | Observation (INO) | payer MEDICARE ==
[2022-08-09 10:14] LABS: BASOPHILS # (AUTO) 0.1 (0.0-0.1); BASOPHILS % 0.6 % (0.0-1.0); EOSINOPHILS # (AUTO) 0.1 (0.0-0.4); HEMATOCRIT 40.1 % (38.2-49.6); HEMOGLOBIN 12.7 g/dL (14.0-18.0); LYMPHOCYTES # (AUTO) 1.4 (1.0-3.2); LYMPHOCYTES % 16.7 % (18.0-39.1); MEAN CORPUSCULAR HEMOGLOBIN 29.7 pg (28-32); MEAN CORPUSCULAR HGB CONC 31.7 g/dL (31-35); MEAN CORPUSCULAR VOLUME 93.7 fL (81-99); MONOCYTES # (AUTO) 0.7 (0.2-0.8); NEUTROPHILS # (AUTO) 6.1 (2.1-6.9); NEUTROPHILS % 73.2 % (38.7-80.0); PLATELET COUNT 321 x10e3/uL (140-360); RED BLOOD COUNT 4.28 x10e6/uL (4.3-5.7); RED CELL DISTRIBUTION WIDTH 14.5 % (11.7-14.4)
[2022-08-09 10:34] LABS: ANION GAP 17.6 mmol/L (8-16); CREATININE, SERUM 1.12 mg/dL (0.72-1.25); POTASSIUM 4.6 mmol/L (3.5-5.1)
[~2022-08-12] VITALS: Ht 188 cm; Wt 122.5 kg
[~2022-08-12 05:59] MED LIST changes: +ASPIRIN81 MG PO; +BENICAR20 MG PO; -BUPIVACAINE HCL 0.5% 10ML MPF VIAL INJ ONE; +COQ-10100 MG; +ELIQUIS5 MG PO; -FENTANYL CITRATE/PF 100MCG/2 ML INJ ONE; -IOPAMIDOL 200 MG/ML 20 ML VIAL IT ONE; -KETAMINE HCL INJ 50 MG/ML 10 ML VIAL ONE; -LIDOCAINE HCL 1% LOCAL INJ 20 ML VIAL ONE; -LIDOCAINE HCL 2% LOCAL INJ 5 ML SDV VIAL INJ ONE; +MAGNESIUM OXID400 MG PO; -MIDAZOLAM HCL 2 MG/2 ML VIAL ONE; +MULTI-VITAMIN1 EACH PO; -POVIDONE IODINE 0.05% 0.05 % ML PO ONE; -PROPOFOL IV EMULSION 10 MG/ML 20 ML VIAL ONE; -TRIAMCINOLONE ACET 40 MG/ML VIAL ONE
[2022-08-12] MEDS ORDERED: CELECOXIB 200 MG CAP ONE (06:23)
[2022-08-12] MEDS ORDERED: DEXAMETHASONE SOD PHOS 10 MG/1 ML VIAL ONE ×2 (06:23→13:36)
[2022-08-12] MEDS ORDERED: GABAPENTIN 300 MG CAP ONE (06:23)
[2022-08-12] MEDS ORDERED: CEFAZOLIN SODIUM 2 GM ONE ×2 (06:24→07:27)
[2022-08-12] MEDS ORDERED: LACTATED RINGER'S 1,000 ML ONE (06:24)
[2022-08-12] MEDS ORDERED: SODIUM CHLORIDE 0.9% 500ML 0 ML ONE (07:26)
[2022-08-12] MEDS ORDERED: Vancomycin IV 0 MG ONE (07:26)
[2022-08-12] MEDS ORDERED: TRANEXAMIC ACID 0 ML ONE (07:27)
[2022-08-12] MEDS ORDERED: ROPIVACAINE 246.25 MG, EPINEPHRINE HCL 1:1000 1ML 0.5 MG, CLONIDINE HCL 0.08 MG, KETORO... INJ ONE ×5 (07:30)
[2022-08-12] MEDS ORDERED: SODIUM CHLORIDE 0.9% 500ML 500 ML ONE (08:38)
[2022-08-12] MEDS ORDERED: Vancomycin IV 1,000 MG ONE (08:38)
[2022-08-12] MEDS ORDERED: TRANEXAMIC ACID 20 ML ONE (08:39)
[2022-08-12] MEDS ORDERED: DIPHENHYDRAMINE HCL INJ 50 MG/ML VIAL IV PRN (09:30)
[2022-08-12] MEDS ORDERED: SODIUM CHLORIDE 0.9% 1000ML 1,000 ML IV SCH (09:30)
[2022-08-12] MEDS ORDERED: DOCUSATE SODIUM 100 MG CAP PO PRN (09:30)
[2022-08-12] MEDS ORDERED: HYDROCODONE/APAP 7.5MG-325MG 1 EA TAB PO PRN (09:30)
[2022-08-12] MEDS ORDERED: ZOLPIDEM TARTRATE 5 MG TAB PO PRN (09:30)
[2022-08-12] MEDS ORDERED: ONDANSETRON HCL INJ 2MG/ML 2ML 2 MG/ML VIAL IV PRN (09:30)
[2022-08-12] MEDS ORDERED: HYDROCODONE/APAP 5MG-325MG TAB PO PRN (09:30)
[2022-08-12] MEDS ORDERED: FENTANYL CITRATE/PF 100MCG/2 ML INJ ONE ×2 (10:26→12:15)
[2022-08-12] MEDS ORDERED: ACETAMINOPHEN 1000 MG/100 ML 100 ML IV ONE (10:49)
[2022-08-12 12:10] VITALS: BP 123/81
[2022-08-12] MEDS ORDERED: KETAMINE HCL INJ 50 MG/ML 10 ML VIAL ONE (12:15)
[2022-08-12] MEDS ORDERED: MIDAZOLAM HCL 2 MG/2 ML VIAL ONE (12:15)
[2022-08-12] MEDS ORDERED: DEXAMETHASONE SOD PHOS INJ 4 MG/ML SDV ONE (12:41)
[2022-08-12] MEDS ORDERED: SUCCINYLCHOLINE CHLORIDE 20 MG/ML 10ML VIAL ONE (12:41)
[2022-08-12] MEDS ORDERED: SEVOFLURANE INHAL SOLN 250 ML PEN BTL ONE (12:41)
[2022-08-12] MEDS ORDERED: LIDOCAINE HCL 2% LOCAL INJ 5 ML SDV VIAL INJ ONE (12:41)
[2022-08-12] MEDS ORDERED: GLYCOPYRROLATE INJ 0.2 MG/ML VIAL ONE (12:41)
[2022-08-12] MEDS ORDERED: POVIDONE IODINE 0.05% 0.05 % ML PO ONE (12:41)
[2022-08-12] MEDS ORDERED: ROCURONIUM BROMIDE 10 MG/ML 5ML VIAL IV ONE (12:41)
[2022-08-12] MEDS ORDERED: ONDANSETRON HCL INJ 2MG/ML 2ML 2 MG/ML VIAL ONE (12:41)
[2022-08-12] MEDS ORDERED: PROPOFOL IV EMULSION 10 MG/ML 20 ML VIAL ONE (12:41)
[2022-08-12] MEDS ORDERED: ROPIVACAINE 0.5% 5 MG/ML 30 ML SDV ONE (13:36)
[2022-08-12 15:50] VITALS: BP 146/80
[2022-08-12] MEDS ORDERED: CELECOXIB 200 MG CAP PO SCH (17:00)
[2022-08-12] MEDS ORDERED: ASPIRIN 325 MG TAB PO SCH (17:00)
[2022-08-13] MEDS ORDERED: ACETAMINOPHEN 1000 MG/100 ML IV PRN (09:30)
== END 2022-08-12 19:27 | disposition home health service (06) ==
LOC: OR 05:59 → PACU V 09:25 → MED/SURG 12:08
PROVIDERS: ADMIT Specialist; ATTEND Specialist
DX: M17.0 Bilateral primary osteoarthritis of knee (principal); I10 Essential (primary) hypertension; Z96.652 Presence of left artificial knee joint; G89.4 Chronic pain syndrome; Z01.818 Encounter for other preprocedural examination; I48.91 Unspecified atrial fibrillation; Z79.01 Long term (current) use of anticoagulants; E11.9 Type 2 diabetes mellitus without complications
CPT/HCPCS: 0223U; 27447; 36415 ×2; 71046; 72170; 80048; 82948; 85025; 86850; 86900; 86920; 94799; 97110; 97116 ×2; 97161; 97530 ×2; C1713 ×3; C1776 ×2; G0378; J0131; J0171; J0330; J0690; J1100 ×2; J1885; J2001; J2250; J2405; J2704; J2795; J3010; J3370; J7030 ×2; J7040; J7121

== ENCOUNTER → 2023-03-14 | Outpatient (REF) | payer MEDICARE | LOC: NM 08:07 | PROVIDERS: ATTEND Internal Medicine Gastroenterology | DX: R11.0 Nausea (principal); K29.60 Other gastritis without bleeding; K59.03 Drug induced constipation | CPT/HCPCS: 78264; A9541 ==